=== PATIENT | female | born 1960 | race African-American/Black ===

== ENCOUNTER → 2020-01-23 15:39 | Outpatient (BNVA) | payer MEDICAID, SELFPAY | PROVIDERS: PCP Nurse Practitioner Family; Referring Provider Nurse Practitioner Family; Visit Provider Physician Assistant | DX: E66.01 Morbid (severe) obesity due to excess calories (principal); Z68.41 Body mass index [BMI] 40.0-44.9, adult | CPT/HCPCS: 99213 ==

== ENCOUNTER → 2020-02-05 12:08 | Outpatient (BNVA) | payer MEDICAID, SELFPAY | PROVIDERS: PCP Internal Medicine; Referring Provider Internal Medicine; Visit Provider Dietitian, Registered | DX: Z76.89 Persons encountering health services in other specified circumstances (principal) ==

== ENCOUNTER → 2020-02-06 13:38 | Outpatient (BNVA) | payer MEDICAID, SELFPAY | PROVIDERS: PCP Internal Medicine; Visit Provider Physician Assistant | DX: Z76.89 Persons encountering health services in other specified circumstances (principal) ==

== ENCOUNTER → 2020-02-26 08:31 | Outpatient (BNVA) | payer MEDICAID, SELFPAY | PROVIDERS: PCP Family Medicine; Referring Provider Family Medicine; Visit Provider Physician Assistant | DX: Z76.89 Persons encountering health services in other specified circumstances (principal) ==

== ENCOUNTER → 2020-03-12 14:11 | Outpatient (BNVA) | payer MEDICAID, SELFPAY | PROVIDERS: PCP Family Medicine; Referring Provider Family Medicine; Visit Provider Surgery | DX: Z01.818 Encounter for other preprocedural examination (principal); E66.01 Morbid (severe) obesity due to excess calories; Z68.41 Body mass index [BMI] 40.0-44.9, adult; R06.02 Shortness of breath | CPT/HCPCS: 99212 ==

== ENCOUNTER → 2020-03-18 13:42 | Outpatient (BNVA) | payer MEDICAID, SELFPAY | PROVIDERS: PCP Family Medicine; Referring Provider Nurse Practitioner Family; Visit Provider Dietitian, Registered | DX: Z76.89 Persons encountering health services in other specified circumstances (principal) ==

== ENCOUNTER → 2020-04-06 14:56 | Outpatient (REF) | payer MEDICAID, SELFPAY ==
--- NOTE | 2020-04-06 15:10 | ECG_ITS ---
Test Reason : CP Blood Pressure : / mmHG Vent. Rate : 079 BPM Atrial Rate : 079 BPM P-R Int : 184 ms QRS Dur : 084 ms QT Int : 374 ms P-R-T Axes : 057 043 023 degrees QTc Int : 428 ms Normal sinus rhythm Normal ECG No previous ECGs available Referred By: Halina Lemons Electronically Signed By:Kong Reid
--- NOTE | 2020-04-06 15:26 | XR_ITS ---
EXAMINATION: XR CHEST CLINICAL INFORMATION: Preprocedure examination. Obesity. COMPARISON: None TECHNIQUE: 2 views of the chest were obtained. FINDINGS: The cardiac and mediastinal contours are normal. The lungs are clear. There is no pleural effusion or pneumothorax. There are degenerative changes of the spine and mild scoliosis. There is an old-appearing lower thoracic vertebral body compression fracture, probably the T11 vertebral body. XR/XR chest 2V IMPRESSION: No evidence for acute disease in the chest. Degenerative changes of the thoracic spine, mild scoliosis and old lower thoracic vertebral body compression fracture.
== END ==
LOC: HO.CARD 14:56
PROVIDERS: PCP Nurse Practitioner Family; Visit Provider Physician Assistant
DX: Z01.818 Encounter for other preprocedural examination (principal)
CPT/HCPCS: 71046; 93005

== ENCOUNTER → 2020-04-07 14:53 | Outpatient (BNVA) | payer MEDICAID, SELFPAY | PROVIDERS: PCP Family Medicine; Visit Provider Surgery | DX: E66.01 Morbid (severe) obesity due to excess calories (principal); Z68.41 Body mass index [BMI] 40.0-44.9, adult | CPT/HCPCS: 99212 ==

== ENCOUNTER → 2020-04-09 08:09 | Outpatient (BNVA) | payer MEDICAID, SELFPAY | PROVIDERS: PCP Family Medicine; Visit Provider Dietitian, Registered | DX: Z76.89 Persons encountering health services in other specified circumstances (principal) ==

== ENCOUNTER → 2020-04-17 13:43 | Outpatient (BNVA) | payer MEDICAID, SELFPAY | PROVIDERS: PCP Family Medicine; Visit Provider Surgery | DX: Z01.818 Encounter for other preprocedural examination (principal); E66.01 Morbid (severe) obesity due to excess calories; Z68.41 Body mass index [BMI] 40.0-44.9, adult; R06.02 Shortness of breath | CPT/HCPCS: 99212 ==

== ENCOUNTER 2020-04-18 10:00 | Outpatient (REF) | payer MEDICAID, SELFPAY ==
[2020-04-18 10:56] LABS: MANUAL DIFF FLAG NO
[2020-04-18 11:01] LABS: Basophils Percent Auto 0.4 % (0-2); Eosinophils Absolute Auto 0.2 X10*3/uL (0.0-0.4); Eosinophils Percent Auto 1.8 % (0-4); Hematocrit 37.5 % (37-47); Hemoglobin 11.7 g/dl (12.0-16.0); Imm Gran Abs Auto 0.04 X10*3/uL (0.00-0.03); Imm Gran Pct Auto 0.5 % (0.0-0.4); Lymphocytes Percent Auto 23.8 % (20-40); Mean Corpuscular HGB Conc 31.2 g/dl (31.0-35.0); Mean Corpuscular Hemoglobin 27.9 pg (27.0-33.0); Mean Corpuscular Volume 89.5 fL (80-98); Mean Platelet Volume 9.2 fL (9.4-12.3); Monocytes Absolute Auto 0.7 X10*3/uL (0.1-1.2); Monocytes Percent Auto 8.4 % (2-11); Neutrophils Absolute Auto 5.3 X10*3/uL (2.0-8.3); Neutrophils Percent Auto 65.1 % (45-73); Platelet Count 325 X10*3/uL (160-400); Red Blood Count 4.19 X10*6/uL (4.20-5.50); Red Cell Distribution Width 13.6 % (11.0-16.0); White Blood Count 8.2 X10*3/uL (4.8-10.8)
[2020-04-18 11:18] LABS: Albumin Level 4.1 g/dL (3.5-5.0); Anion Gap 12 (12-20); Blood Urea Nitrogen 14 mg/dL (9-16); Calcium 9.4 mg/dL (8.4-10.2); Carbon Dioxide 27 mmol/L (22-29); Chloride 108 mmol/L (96-108); Estimated Glomerular Filt Rate > 60; Glucose Random 99 mg/dL (60-115); Potassium 3.4 mmol/l (3.3-5.1); Sodium 144 mmol/L (135-145)
[2020-04-18 11:47] LABS: Glucose Urine UA NEG (NEG); Leukocyte Esterase Urine NEG (NEG); Nitrite Urine NEG (NEG); Specific Gravity - Urine 1.025 (1.005-1.025); Urine Blood NEG (NEG); Urine Ketones 15 MG/DL (NEG); Urine Protein NEG (NEG-TRACE)
[2020-04-18 11:49] LABS: Appearance Urine CLEAR; Color Urine YELLOW
== END 2020-04-18 10:01 | disposition home or self-care (01) ==
LOC: HO.LAB 10:00
PROVIDERS: PCP Family Medicine; Visit Provider Surgery
DX: Z01.818 Encounter for other preprocedural examination (principal)
CPT/HCPCS: 36415; 80048; 81003; 82040; 85025

== ENCOUNTER 2020-04-22 07:27 | Inpatient (IN) | payer MEDICAID, SELFPAY ==
[2020-04-17 09:13] VITALS: BMI 43.8
--- NOTE | 2020-04-21 10:57 | P.CONAN_ITS ---
HPI - Anesthesia Eval Consult details Narrative: 59yo F for Gastrectomy Sleeve Cardiac cleared @ low to intermed. Notes poorly controlled BP to be managed by PCP (147/76 at last bariatric appt) [facility] Past Medical History Medical History ADHD Arthritis Asthma Hypertension Lab test negative for COVID-19 virus Family History Family History Father Heart disease Mother Breast cancer Brother No problems noted. Son No problems noted. Daughter No problems noted. Sister No problems noted. Surgical History Surgical History H/O colonoscopy Hx laparoscopic cholecystectomy Status post breast reduction Social History Social History Are you a primary senior care assistant to a significant other at home: No Do you presently have visiting nurse or other home services: No Alcohol intake: current Alcohol intake frequency: holidays/special occasions only Smoking Status: Never smoker Use of substances other than those prescribed or required for medical reasons: Yes Substance Use Type: Marijuana Substance Use Type Other:: using edibles Substance Use Frequency: Occasionally Have you been hit, kicked, punched, or otherwise hurt by someone within the past year? If so, by whom?: No Advance Directives Information Provided: No Recently lost weight without trying: No Meds Allergies Allergy/AdvReac Type Severity Reaction Status Date / Time fish derived [fish] Allergy Severe Anaphylaxis Verified 04/17/20 15:59 amoxicillin [Augmentin] Allergy Intermediate Rash Verified 04/17/20 15:59 clavulanic acid [Augmentin] Allergy Intermediate Rash Verified 04/17/20 15:59 Home Medications Medication Instructions Recorded Confirmed Type dextroamphetamine-amphetamine ER 10 mg PO DAILY 02/26/20 04/17/20 History 10 mg 24hr capsule,extend release fluticasone 500 mcg-salmeterol 50 1 inh INHALATION BID 02/26/20 04/17/20 History mcg/dose blistr powdr for inhalation lisinopril 10 mg tablet 10 mg PO DAILY 02/26/20 04/17/20 History ascorbic acid (vitamin C) 1,000 mg 1 g PO DAILY tab 03/12/20 04/17/20 History tablet blue-green algae (Spirulina) 500 2,000 mg PO DAILY tab 03/12/20 04/17/20 History mg tablet cholecalciferol (vitamin D3) 125 125 mcg PO DAILY 03/12/20 04/17/20 History mcg (5,000 unit) capsule naproxen 500 mg tablet 500 mg PO DAILY tab 03/12/20 04/17/20 History oxycodone-acetaminophen 5 mg-325 1 tab PO Q6H PRN 03/12/20 04/17/20 History mg tablet starch ea MISCELLANEOUS 03/12/20 04/17/20 History albuterol sulfate [ProAir HFA] 2 puff INHALATION Q4-6H PRN 04/17/20 04/17/20 History Exam Exam Date and Time: April 21, 2020 1057 Height,Weight and Vital Signs: Height 5 ft 2 in Weight 108.681 kg Pertinent Lab Results Pertinent Lab Results: Laboratory Tests 04/18/20 10:30 Blood Type A Positive Antibody Screen NEGATIVE Laboratory Tests 04/18/20 04/18/20 10:30 10:30 WBC 8.2 Hgb 11.7 L Hct 37.5 Plt Count 325 Sodium 144 Potassium 3.4 Chloride 108 Carbon Dioxide 27 BUN 14 Creatinine 0.81 Narrative Narrative: EKG 04/2020: Normal sinus rhythm Normal ECG No previous ECGs available 2018 Cardiac Preop W/U Echo with low nml EF 50-55%, mild DD, otherwise unremarkable MIBI no ischemia or infarction, LVEF 45% Assessment and Plan Assessment Anesthesia Assessment: Chart Reviewed
--- NOTE | 2020-04-21 14:16 | MHC.SHP ---
Pre-Procedural Eval Section B Chief Complaint: obesity Allergies: Allergies Allergy/AdvReac Type Severity Reaction Status Date / Time fish derived [fish] Allergy Severe Anaphylaxis Verified 04/17/20 15:59 amoxicillin [Augmentin] Allergy Intermediate Rash Verified 04/17/20 15:59 clavulanic acid [Augmentin] Allergy Intermediate Rash Verified 04/17/20 15:59 Plan I have reviewed the history and physical and performed a pertinent physical examination on my patient. No changes have occurred unless specified.
[2020-04-22] VITALS (31 sets, daily range): BP systolic 140–234; BP diastolic 73–120; PULSE 84–114; RESP 12–20; TEMP 35.9–36.9; O2SAT 94–100
[2020-04-22] MEDS: Lactated Ringers 1,000 ML 100 ML IVCONT ×2 (08:01→20:23)
[2020-04-22] MEDS: Clindamycin Phosphate/D5W 900 MG/50 ML PIGGYBACK 50 MG IV ×2 (08:03→21:07)
[2020-04-22 08:13] LABS: COVID-19 Test Negative (Negative); IDNOW Serial# 9DD0AD1C
--- NOTE | 2020-04-22 09:12 | P.CONAN_ITS ---
[facility] Past Medical History Medical History ADHD Arthritis Asthma Hypertension Lab test negative for COVID-19 virus Family History Family History Father Heart disease Mother Breast cancer Brother No problems noted. Son No problems noted. Daughter No problems noted. Sister No problems noted. Surgical History Surgical History H/O colonoscopy Hx laparoscopic cholecystectomy Status post breast reduction Social History Social History Are you a primary resident care provider to a significant other at home: No Do you presently have visiting nurse or other home services: No Alcohol intake: current Alcohol intake frequency: holidays/special occasions only Smoking Status: Never smoker Use of substances other than those prescribed or required for medical reasons: Yes Substance Use Type: Marijuana Substance Use Type Other:: using edibles Substance Use Frequency: Occasionally Have you been hit, kicked, punched, or otherwise hurt by someone within the past year? If so, by whom?: No Advance Directives Information Provided: No Recently lost weight without trying: No Meds Allergies Allergy/AdvReac Type Severity Reaction Status Date / Time fish derived [fish] Allergy Severe Anaphylaxis Verified 04/17/20 15:59 amoxicillin [Augmentin] Allergy Intermediate Rash Verified 04/17/20 15:59 clavulanic acid [Augmentin] Allergy Intermediate Rash Verified 04/17/20 15:59 Home Medications Medication Instructions Recorded Confirmed Type dextroamphetamine-amphetamine ER 10 mg PO DAILY 02/26/20 04/17/20 History 10 mg 24hr capsule,extend release fluticasone 500 mcg-salmeterol 50 1 inh INHALATION BID 02/26/20 04/17/20 History mcg/dose blistr powdr for inhalation lisinopril 10 mg tablet 10 mg PO DAILY 02/26/20 04/17/20 History ascorbic acid (vitamin C) 1,000 mg 1 g PO DAILY tab 03/12/20 04/17/20 History tablet blue-green algae (Spirulina) 500 2,000 mg PO DAILY tab 03/12/20 04/17/20 History mg tablet cholecalciferol (vitamin D3) 125 125 mcg PO DAILY 03/12/20 04/17/20 History mcg (5,000 unit) capsule naproxen 500 mg tablet 500 mg PO DAILY tab 03/12/20 04/17/20 History oxycodone-acetaminophen 5 mg-325 1 tab PO Q6H PRN 03/12/20 04/17/20 History mg tablet starch ea MISCELLANEOUS 03/12/20 04/17/20 History albuterol sulfate [ProAir HFA] 2 puff INHALATION Q4-6H PRN 04/17/20 04/17/20 History Exam Exam Date and Time: April 22, 2020 0912 Height,Weight and Vital Signs: Height 5 ft 2 in Weight 108.681 kg Last Vital Signs Temp 97.7 F 04/22/20 07:47 Pulse 92 04/22/20 07:47 Resp 16 04/22/20 07:47 BP 140/73 H 04/22/20 07:47 Pulse Ox 98 04/22/20 07:47 Pertinent Lab Results Pertinent Lab Results: Laboratory Tests 04/18/20 04/22/20 04/22/20 10:30 07:30 07:58 COVID-19 (SHENA) Negative COVID-19 Clin Com See Note Blood Type A Positive A Positive Antibody Screen NEGATIVE NEGATIVE Airway Mallampati Class: I TM Dist: >3cm Neck ROM: Full Heart: h RRR Lungs: CTA
--- NOTE | 2020-04-22 09:14 | P.CONAN_ITS ---
[facility] Past Medical History Medical History ADHD Arthritis Asthma Hypertension Lab test negative for COVID-19 virus Family History Family History Father Heart disease Mother Breast cancer Brother No problems noted. Son No problems noted. Daughter No problems noted. Sister No problems noted. Surgical History Surgical History H/O colonoscopy Hx laparoscopic cholecystectomy Status post breast reduction Social History Social History Are you a primary respiratory care faculty to a significant other at home: No Do you presently have visiting nurse or other home services: No Alcohol intake: current Alcohol intake frequency: holidays/special occasions only Smoking Status: Never smoker Use of substances other than those prescribed or required for medical reasons: Yes Substance Use Type: Marijuana Substance Use Type Other:: using edibles Substance Use Frequency: Occasionally Have you been hit, kicked, punched, or otherwise hurt by someone within the past year? If so, by whom?: No Advance Directives Information Provided: No Recently lost weight without trying: No Meds Allergies Allergy/AdvReac Type Severity Reaction Status Date / Time fish derived [fish] Allergy Severe Anaphylaxis Verified 04/17/20 15:59 amoxicillin [Augmentin] Allergy Intermediate Rash Verified 04/17/20 15:59 clavulanic acid [Augmentin] Allergy Intermediate Rash Verified 04/17/20 15:59 Home Medications Medication Instructions Recorded Confirmed Type dextroamphetamine-amphetamine ER 10 mg PO DAILY 02/26/20 04/17/20 History 10 mg 24hr capsule,extend release fluticasone 500 mcg-salmeterol 50 1 inh INHALATION BID 02/26/20 04/17/20 History mcg/dose blistr powdr for inhalation lisinopril 10 mg tablet 10 mg PO DAILY 02/26/20 04/17/20 History ascorbic acid (vitamin C) 1,000 mg 1 g PO DAILY tab 03/12/20 04/17/20 History tablet blue-green algae (Spirulina) 500 2,000 mg PO DAILY tab 03/12/20 04/17/20 History mg tablet cholecalciferol (vitamin D3) 125 125 mcg PO DAILY 03/12/20 04/17/20 History mcg (5,000 unit) capsule naproxen 500 mg tablet 500 mg PO DAILY tab 03/12/20 04/17/20 History oxycodone-acetaminophen 5 mg-325 1 tab PO Q6H PRN 03/12/20 04/17/20 History mg tablet starch ea MISCELLANEOUS 03/12/20 04/17/20 History albuterol sulfate [ProAir HFA] 2 puff INHALATION Q4-6H PRN 04/17/20 04/17/20 History Exam Exam Date and Time: April 22, 2020 0914 Height,Weight and Vital Signs: Height 5 ft 2 in Weight 108.681 kg Last Vital Signs Temp 97.7 F 04/22/20 07:47 Pulse 92 04/22/20 07:47 Resp 16 04/22/20 07:47 BP 140/73 H 04/22/20 07:47 Pulse Ox 98 04/22/20 07:47 Pertinent Lab Results Pertinent Lab Results: Laboratory Tests 04/18/20 04/22/20 04/22/20 10:30 07:30 07:58 COVID-19 (SHENA) Negative COVID-19 Clin Com See Note Blood Type A Positive A Positive Antibody Screen NEGATIVE NEGATIVE Assessment and Plan Final Anesthetic Review NPO: Yes ASA Class: III Final Preanesthetic Review: No Changes in Pt Med Stat, Meds/Allgs Chart Reviewed, Consent Obtained/Reviewed and Anes Risks/Benef Reviewed Patient Risk: High Procedure Risk: Intermediate Anesthetic Plan Anesthetic Plan: GA Disposition: Standard PACU
--- NOTE | 2020-04-22 11:11 | P.BOP_ITS ---
Brief Operative Note Date of Service: 04/22/20 Pre-op diagnosis: Morbid obesity and hypertension Post-op diagnosis: other (Same and paraesophageal hernia) Procedure: Laparoscopic sleeve gastrectomy, paraesophageal hernia repair, intraoperative endoscopy, and Iker block Implants: covidien nadeem Surgeon: Estee Block MD Anesthesia: GETA Product Transfer Pumper: Ximena Singh Estimated blood loss (mL): 10 Pathology: other (Partial gastrectomy) Condition: stable Disposition: PACU
--- NOTE | 2020-04-22 11:12 | P.OP_ITS ---
Operative Note Operative Note Date of Service: 04/22/20 Narrative: Patient was brought into the operating room and placed on the operating room table in the supine position. General anesthesia was induced. Normal DVT prophylaxis was instituted and the patient received 900 mg of clindamycin preoperatively. The abdomen was then prepped and draped in the normal sterile fashion. A safety time-out was performed. A mixture of 1% lidocaine with epinephrine and ??% Marcaine plain was used to anesthetize the planned incision site in the left upper quadrant. A #11 scalpel was used to make a 5 mm left upper quadrant transverse incision through which a veress needle was placed. Three pops were heard going through the fascia. A saline drop test was used to confirm that the veress needle was intraabdominal. An optiview technique was then used to place a 5mm port in the left upper quadrant. A 5 mm 30 degree laproscope was then placed through this port and the abdominal cavity was surveyed and was normal. The patient was placed in reverse Trendelenburg positioning. A clive liver retractor was then placed in the subxyphoid position and it was used to hold up the left lobe of the liver to the abdominal wall. This was secured to the bed using the liver retractor bashir. A SANTOSH block was then performed for pain control on the right side of the abdomen. A 5 mm port was placed in the right upper quadrant near the falciform ligament. A 12 mm port was then placed in the mid epigastrium. One additional 5 mm port was placed in the left upper quadrant just to the left of the placement of the first port. I then performed a SANTOSH block on the left side of the abdomen. I then removed the epigastric fat pad; there was a moderate size anterior hiatal hernia noted, about 3-4 cm in size. We cleared off the phrenoesophageal ligament bilaterally. I reapproximated the left and right crura anteriorly with a total of 3 stitches of 2-0 ethibond and a laparoscopic knot pusher. There was no residual hiatal hernia. I then opened up the angle of His. We then gained entry into the lesser sac about 4-5 cm from the pylorus. I had anesthesia place a 34 Serbian orogastric tube into the distal antrum to use as a sizing tool for gastric pouch size. I divided the short gastric vessels up to the angle of His. We then started the creation of the gastric pouch by firing a 60 mm purple load endostapler up the stomach about 4-5 cm from the pylorus. We completed the creation of the gastric pouch using a total of 4 firings of a 60 mm purple load stapler. We had anesthesia remove the orogastric tube, then we clamped across the distal antrum using a fired 60 mm endostapler. We flattened the patient and then instilled normal saline surrounding the newly created staple line. I then performed an on-table endoscopy. I passed the gastroscopy into the posterior oropharynx and down the esophagus evaluating the esophageal mucosa which was normal. There was no evidence of hiatal hernia. I passed the gastroscope into the gastric pouch and insufflated the gastric pouch. There was healthy pink mucosa and no evidence of active bleeding. There was no evidence of leak on laparoscopy. I desufflated the gastric pouch and removed the endoscope. I removed the endostapler from the abdomen and suctioned the fluid from the left upper quadrant. I then removed the partial gastrectomy specimen through the epigastric 12 mm port site. I reapproximated the 12 mm port using a 0 maxon suture with a laparoscopic suture passer. I instilled local anesthetic into the fascial closure site and tied the suture down at a pressure of 8-10 mm of Hg. There was no residual fascial defect. We removed the liver retractor and the left upper quadrant 5 mm ports under direct visualization. There was no evidence of any active bleeding. I desufflated the abdomen through the last remaining port and removed the laparoscope and 5 mm port. We reapproximated all incisions with a 4-0 monocryl subcuticular stitch. We cleaned and dried the abdominal skin and applied dermabond skin glue. All count were correct at the end of the case. The patient was awake and in stable condition prior to extubation and transfer to the recovery room.
--- NOTE | 2020-04-22 11:30 | P.DS_ITS ---
DS: Providers Provider Date of Service: 04/23/20 Date of admission: 04/22/20 07:27 Primary care physician: ARI Silvestre DS: Diagnosis Discharge Diagnosis (1) Paraesophageal hernia: Status: Acute (2) Morbid obesity: Status: Acute (3) Hypertension: Status: Acute (4) S/P laparoscopic sleeve gastrectomy: Status: Acute (5) S/P repair of paraesophageal hernia: Status: Acute DS: Medications Discharge Medications Home Medications: Home Medications Medication Instructions Recorded Confirmed dextroamphetamine-amphetamine ER 10 mg PO DAILY 02/26/20 04/17/20 10 mg 24hr capsule,extend release fluticasone 500 mcg-salmeterol 50 1 inh INHALATION BID 02/26/20 04/17/20 mcg/dose blistr powdr for inhalation lisinopril 10 mg tablet 10 mg PO DAILY 02/26/20 04/17/20 ascorbic acid (vitamin C) 1,000 mg 1 g PO DAILY tab 03/12/20 04/17/20 tablet blue-green algae (Spirulina) 500 2,000 mg PO DAILY tab 03/12/20 04/17/20 mg tablet cholecalciferol (vitamin D3) 125 125 mcg PO DAILY 03/12/20 04/17/20 mcg (5,000 unit) capsule naproxen 500 mg tablet 500 mg PO DAILY tab 03/12/20 04/17/20 oxycodone-acetaminophen 5 mg-325 1 tab PO Q6H PRN 03/12/20 04/17/20 mg tablet starch ea MISCELLANEOUS 03/12/20 04/17/20 albuterol sulfate [ProAir HFA] 2 puff INHALATION Q4-6H PRN 04/17/20 04/17/20 Previous Rx's Medication Instructions Recorded acetaminophen 500 mg tablet 1,000 mg PO Q6H PRN #30 tab 04/17/20 docusate sodium 100 mg capsule 100 mg PO BID #30 cap 04/17/20 famotidine 20 mg tablet 20 mg PO DAILY #30 tab 04/17/20 ondansetron HCl 4 mg tablet 4 mg PO Q6H PRN #30 tab 04/17/20 simethicone 80 mg chewable tablet 80 mg PO TID-QID PRN #30 tab 04/17/20 DS: Summary Time Spent with Patient Time attestation: Total time spent providing and/or coordinating discharge services: Discharge coordination time: Greater than 30 minutes Physical Exam Vital Signs: Vital Signs: Last Vital Signs Temp 97.3 F 04/22/20 11:05 Pulse 114 H 04/22/20 11:05 Resp 14 04/22/20 11:05 BP 228/105 H 04/22/20 11:05 Pulse Ox 95 04/22/20 11:05 Body Mass Index 43.8 DS: Data Data Completed and Pending Pending studies at discharge: Pending at discharge 04/22/20 10:03 Surgical [PTH] Routine Labs on day of discharge: Laboratory Tests 04/18/20 04/22/20 04/22/20 10:30 07:30 07:58 COVID-19 (SHENA) Negative COVID-19 Clin Com See Note Blood Type A Positive A Positive Antibody Screen NEGATIVE NEGATIVE Discharge Plan Discharge Patient Disposition: Home, Self-Care Referrals: Gisela Bose FNP [Primary Care Provider] - Discharge Medications: New hydralazine 10 mg tablet 10 mg PO BID 28 Days Qty: 56 RF: 1 Continued albuterol sulfate [ProAir HFA] 90 mcg/actuation Hfa Aerosol Inhaler 2 puff INHALATION Q4-6H PRN (Reason: Shortness Of Breath) RF: 0 oxycodone-acetaminophen [Percocet] 5-325 mg tablet 1 tab PO Q6H PRNRF: 0 lisinopril 10 mg tablet 10 mg PO DAILY RF: 0 fluticasone propion-salmeterol [Advair Diskus] 500-50 mcg/dose blister with d evice 1 inh inhalation BID RF: 0 dextroamphetamine-amphetamine 10 mg capsule,extended release 24hr 10 mg PO DAILY RF: 0 acetaminophen [Tylenol Extra Strength] 500 mg tablet 1,000 mg PO Q6H PRN (Reason: pain) Qty: 30 RF: 1 famotidine [Pepcid AC] 20 mg tablet 20 mg PO DAILY Qty: 30 RF: 1 simethicone [Gas Relief (simethicone)] 80 mg tablet,chewable 80 mg PO TID-QID PRN (Reason: abdominal distention) Qty: 30 RF: 1 ondansetron HCl [Zofran] 4 mg tablet 4 mg PO Q6H PRN (Reason: nausea and vomiting) Qty: 30 RF: 1 docusate sodium [Colace] 100 mg capsule 100 mg PO BID Qty: 30 RF: 1 Discontinued naproxen 500 mg tablet 500 mg PO DAILY RF: 0 blue-green algae (Spirulina) 500 mg tablet 2,000 mg PO DAILY RF: 0 cholecalciferol (vitamin D3) 125 mcg (5,000 unit) capsule 125 mcg PO DAILY RF: 0 ascorbic acid (vitamin C) 1,000 mg tablet 1 g PO DAILY RF: 0 starch Powder miscellaneous RF: 0 Discharge Orders: Discharge Order (Routine); Ordered 04/23/20 Ordered By: Ximena Singh Diet: other Activity on Discharge: No heavy lifting Stand Alone Forms: Patient Portal Discharge page Activity Restrictions/Additional Instructions: Discharge Instructions *follow up with PCP regarding elevated blood pressure. 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 1. Please call your doctor or come back to the emergency room should any new symptoms arise. 2. You will receive a courtesy call from [facility] 24-48 hours after discharge. 3. Activity: abstain from alcohol, practice limited stair climbing, no bending, no driving, no exercise, no illicit substances, no lifting, no sex, no tub bath, no work. 4. Diet: continue stage 3 protein shakes until your [address] Block. 5. Dressing Change/Wound Care: Your incision is covered by surgical glue. If the area is tender, you may apply an ice pack for short intervals (no more than 20 minutes on, followed by at least 20 minutes off). Do not apply heat. Do not use creams, lotions, or topical antibiotics unless instructed to do so by your surgeon. These can cause infection or allergic reaction. 6. Call your doctor if: - Your temperature exceeds 101.5 F - You experience excessive pain or swelling - You have an unexpected reaction to medication - You have excessive bleeding - You experience continued vomiting/nausea - Your incision begins to separate - Your incision shows signs of infection such as increased redness, swelling, excessive pain, heat, or drainage (light blood or clear fluid is normal) 7. General instructions: - No lifting greater than 5 lbs for the next 4 weeks. - No driving within 24 hours of taking narcotic pain medications. - If you do not move your bowels in the next 2 days, please take milk of magnesia over the counter. Please follow the post op diet and do not advance your diet until you are seen in the office in about 2 weeks. - Please walk around your home every hour or two to prevent blood clots from forming in your legs. You do not need to wake from sleeping to walk. - Please sleep in a bed or couch to prevent kinking at the hips and knees. - Please take your incentive spirometer (your lung rolling mill operator) home with you and use it for the next few days to prevent pneumonias. - You may shower, no hot tubs, baths or swimming pools. - Please call the office with any questions or concerns such as increasing abdominal pain, fever, chills, shortness of breath, chest pain, leg pain or swelling, or redness or drainage from your incisions. - Please stay on stage 3 diet which includes sugar free clear liquids such as ice pops and jello and broth and crystal light. Avoid all carbonation. Please drink 3 protein shakes with at least 25-30 grams of protein daily or 3 of the Celebrate 4:1 shakes which can be purchased in our office. The Celebrate shakes have all of the bariatric vitamins you need if you consume these shakes. If you are drinking other protein shakes, you will need to purchase the Celebrate multivitamins and calcium that we provide in the office (they will provide all the vitamins you need). Please make sure you are consuming at least 40-60 ounces of water in addition to your 3 protein shakes daily. 8. Do not hesitate to contact the office with any questions at . Discharge Summary Date of Service: 04/23/20 Admitting Diagnosis: morbid obesity Discharge Diagnosis: same, and paraesophageal hernia Procedure Performed: LSG, paraesophageal repair, jayleen block, intraoperative endoscopy Discharge Medications: 1. Simethicone 80mg tablet chewable (Si tablet every 6 hours orally for 7 days, #28, 1 RF) q4h prn gas 2. Acetaminophen 500 mg tablet (Si tablets as needed every 6 hours orally for 30 days, #240, 0 RF) 3. Ondansetron 4 mg tablet disintegrating (Si tablet every 6 hours orally for 7 days, #28, 1 RF) 4. Colace 100 mg capsule (Si capsule twice a day for 30 days, #60, 2 RF) 5. Pepcid 20 mg chewable tablet (Si tablet twice a day for 30 days, #60, 3 RF) Discharge Instructions: The patient should continue on the stage III bariatric diet, which includes 3 protein shakes of at least 20-30g of protein on a daily basis. The patient was encouraged to avoid drinking liquids with her protein shakes. They should wait 30-45 minutes in between her meals and drinking water. She should drink at least 40-60 ounces of water on a daily basis. They should ambulate while at home to avoid any blood clots in her lower extremities. They should call with any questions or concerns such as increase in abdominal pain, persistent nausea, vomiting, redness and drainage from her incisions, fever, chills, shortness of breast, or chest pain beyond what is normal for her. The patient should avoid all heavy lifting greater than 5 pounds for the next 4 weeks. The patient is already scheduled to follow up with me in 2 weeks time, but should call the office with any questions prior to that follow up appointment. The patient should not advance their diet until they are seen in the office for the 2 week appointment. Hospital Course: The patient was admitted after undergoing SURGERY. They were started on stage II (1 oz of fluid every 15 minutes) on POD #0. The next morning they were evaluated and started on stage III diet (protein shakes). All labs were within normal limits. On post-operative day #1 she was feeling better, nausea and epigastric pain improved and they were tolerating stage III bariatric diet well. The patient was discharged home. Discharge Disposition: Home. Visit Report Forms: Patient Portal Discharge page Care Plan Goals: weight loss Health Concerns: obesity Plan of Treatment: lap sleeve gastrectomy
--- NOTE | 2020-04-22 11:30 | PM.PNGS ---
Subjective Subjective Date of Service: 04/23/20 Interval history: POD #1: Patient is doing well. Has been ambulating, using the incentive spirometer, and tolerating po liquids. No nausea or abdominal pain. Has some mild incisional pain. BP was elevated overnight, given hydralazine and changed to IV enalaprilat. Patient feels well, no anxiety or pain. Physical Exam Vital Signs: Vital Signs: Last Vital Signs Temp 97.3 F 04/22/20 11:05 Pulse 114 H 04/22/20 11:05 Resp 14 04/22/20 11:05 BP 228/105 H 04/22/20 11:05 Pulse Ox 95 04/22/20 11:05 Body Mass Index 43.8 Const: General: cooperative, comfortable, no acute distress, alert and awake Nutritional Appearance: obese GI: Inspection: Yes normal to inspection, Yes incision (normal, slight erythema at site of surgical glue, no tenderness/warmth/drai) and Yes obesity Extrem: Right lower extremity: lower leg Details: no tenderness; no edema Left lower extremity: lower leg Details: no tenderness; no edema Progress Note: A&P Assessment and plan (1) Morbid obesity: Status: Acute (2) Paraesophageal hernia: Status: Acute Assessment and Plan: POD #1: Patient doing well and will be discharged home today. All instructions given in writing. Follow up as scheduled in 2 weeks. Gave new Rx for hydralazine po 10mg BID. Given lisinopril po dose this morning before discharge. Patient to call PCP to discuss elevated BP. Fall Risk Details Current Medications: Current Medications Generic Name Dose Route Start Last Admin Trade Name Freq PRN Reason Stop Dose Admin Albuterol Sulfate 2.5 mg 04/22/20 07:24 Albuterol Sulfate (0.083%) 2.5 Mg/3 Ml Vial.Neb INHALE ONCE PRN Shortness of Breath/Wheezing Fentanyl 50 mcg 04/22/20 10:09 Fentanyl Citrate/Pf 100 Mcg/2 Ml Vial IVPUSH Q5M PRN Pain, Severe (Pain Scale 7-10) Hydromorphone HCl 0.5 mg 04/22/20 10:09 Hydromorphone Hcl 0.5 Mg/0.5 Ml Syringe IVPUSH Q5M PRN Pain, Severe (Pain Scale 7-10) Lactated Ringer's 1,000 mls @ 100 mls/hr 04/22/20 07:30 04/22/20 08:01 Lr IVCONT 100 mls/hr .Q10H MARLENA Administration Ondansetron HCl 4 mg 04/22/20 10:09 Ondansetron Hcl 4 Mg/2 Ml Vial IVPUSH ONCE PRN Nausea and Vomiting Time Spent With Patient Time: Total time spent is greater than 50% in coordination of care (as documented) at patient's floor/unit and/or counseling patient: Time with patient: 15 - 24 minutes
[2020-04-22] MEDS: ondansetron HCL 4 MG/2 ML VIAL IVPUSH ×2 (12:26→19:14)
[2020-04-22] MEDS: Metoclopramide HCl 10 MG/2 ML VIAL IVPUSH ×2 (12:29→21:04)
[2020-04-22] MEDS: hydrALAZINE HCl 20 MG/ML VIAL 10 MG IVPUSH ×2 (17:03→22:53)
--- NOTE | 2020-04-22 18:25 | PC.NURSE ---
PT ARRIVED TO UNIT AT 1635 PT ALERT OX3 , PT OOB AMBULATING TO BR , BLOOD PRESSURE AT THAT TIME 192/88. LEIDY SIDDIQI AWARE NEW ORDER FOR 10MG IV HYDRALAZINE . HYDRALAZINE GIVEN AT 1703 BP 213/102 AT TIME OF MED ADMININSTRATION . 1729 BP 192/86 , BP AT 1750 178/73 JADE SIDDIQI AWARE PT APPEARS COMFORTABLE NO ISSUES . .
[2020-04-22] MEDS: Fluticasone Propionate 100 MCG BLST.W.DEV 2 PUFF INHALE (19:38)
[2020-04-22] MEDS: hydrALAZINE HCl 20 MG/ML VIAL 5 MG IVPUSH (20:21)
[2020-04-22] MEDS: Famotidine 20 MG TABLET PO (21:07)
[2020-04-22] MEDS: Enalaprilat Dihydrate 1.25 MG/ML VIAL 0.625 MG IVPUSH (21:21)
[2020-04-23] VITALS (13 sets, daily range): BP systolic 138–208; BP diastolic 70–98; PULSE 91–112; RESP 16–18; TEMP 36.9–37.5; O2SAT 96–98
[2020-04-23] MEDS: ondansetron HCL 4 MG/2 ML VIAL IVPUSH ×2 (03:15→11:04)
[2020-04-23] MEDS: Enalaprilat Dihydrate 1.25 MG/ML VIAL 0.625 MG IVPUSH ×2 (03:15→08:29)
[2020-04-23 04:39] LABS: MANUAL DIFF FLAG NO
[2020-04-23 04:41] LABS: Basophils Percent Auto 0.2 % (0-2); Hematocrit 37.9 % (37-47); Hemoglobin 12.3 g/dl (12.0-16.0); Imm Gran Abs Auto 0.06 X10*3/uL (0.00-0.03); Imm Gran Pct Auto 0.5 % (0.0-0.4); Lymphocytes Absolute Auto 1.1 X10*3/uL (1.2-4.9); Lymphocytes Percent Auto 8.7 % (20-40); Mean Corpuscular HGB Conc 32.5 g/dl (31.0-35.0); Mean Corpuscular Hemoglobin 28.5 pg (27.0-33.0); Mean Corpuscular Volume 87.9 fL (80-98); Mean Platelet Volume 9.6 fL (9.4-12.3); Monocytes Absolute Auto 1.1 X10*3/uL (0.1-1.2); Monocytes Percent Auto 8.7 % (2-11); Neutrophils Absolute Auto 10.1 X10*3/uL (2.0-8.3); Neutrophils Percent Auto 81.9 % (45-73); Platelet Count 332 X10*3/uL (160-400); Red Blood Count 4.31 X10*6/uL (4.20-5.50); Red Cell Distribution Width 13.5 % (11.0-16.0); White Blood Count 12.4 X10*3/uL (4.8-10.8)
[2020-04-23 05:04] LABS: Anion Gap 18 (12-20); Blood Urea Nitrogen 8 mg/dL (9-16); Calcium 9.5 mg/dL (8.4-10.2); Carbon Dioxide 22 mmol/L (22-29); Chloride 99 mmol/L (96-108); Creatinine Clr Calc Pharmacy 92.4; Estimated Glomerular Filt Rate > 60; Glucose Random 107 mg/dL (60-115); Potassium 3.3 mmol/l (3.3-5.1); Sodium 136 mmol/L (135-145)
[2020-04-23] MEDS: hydrALAZINE HCl 20 MG/ML VIAL 10 MG IVPUSH (05:06)
[2020-04-23] MEDS: Lactated Ringers 1,000 ML 100 ML IVCONT (06:11)
[2020-04-23] MEDS: Fluticasone Propionate 100 MCG BLST.W.DEV 2 PUFF INHALE (07:25)
[2020-04-23] MEDS: Famotidine 20 MG TABLET PO (08:30)
--- NOTE | 2020-04-23 09:47 | MHC.CM.PN ---
PT REPORTS SHE LIVES AT HOME WITH HER MOTHER AND 21 YO DAUGHTER. PT REPORTS SHE IS FULLY INDEPENDENT, HAS NO SERVICES AND NO DME. PT REPORTS SHE HAS A HCP COMPLETED NAMING HER MOTHER HER AGENT. PT CONFIRMS HER PCP IS RITESH LENZ. PT WILL DISCHARGE HOME TODAY WITH NO SERVICES, SHE REPORTS HAVING NO CONCERNS AROUND DC AND SHE WILL ARRANGE HER OWN TRANSPORTATION
--- NOTE | 2020-04-23 10:54 | P.HPHOSP_ITS ---
History of Present Illness Date of Service: 04/23/20 Chief Complaint: elevated blood pressure This is a 59-year-old female with history of hypertension who presented for sleeve gastrectomy on 04/22. Postoperatively she was noted to have uncontrolled hypertension and received several doses of IV medication. Blood pressure was as high as 234/120 on 04/22. For this reason the hospitalists were asked to see her in consultation. She reports taking lisinopril 10 mg daily at home for the past several years. She denies any current chest pain, shortness of breath, headache, vision changes. She recently ambulated to the bathroom on her own without difficulty. She does report ongoing abdominal pain which is currently described as 9/10 in severity. Review of Systems Review of Systems: Yes all other systems are reviewed and are negative Constitutional: Constitutional: Denies chills, Denies fever(s) and Denies headache(s) ENT: Denies headache(s) Cardiovascular: Cardiovascular: Denies chest pain and Denies dyspnea Respiratory: Respiratory: Denies cough and Denies dyspnea Gastrointestinal: Gastrointestinal: Denies abdominal pain Musculoskeletal: Musculoskeletal: Denies abnormal gait Neurologic: Denies abnormal gait, Denies headache(s) and Denies Other visual disturbances [facility] Medical History ADHD Arthritis Asthma Hypertension Lab test negative for COVID-19 virus Family History Father Heart disease Mother Breast cancer Brother No problems noted. Son No problems noted. Daughter No problems noted. Sister No problems noted. Surgical History H/O colonoscopy Hx laparoscopic cholecystectomy Status post breast reduction Social History Are you a primary rn intensive care unit to a significant other at home: No Do you presently have visiting nurse or other home services: No Alcohol intake: current Alcohol intake frequency: holidays/special occasions only Smoking Status: Never smoker Use of substances other than those prescribed or required for medical reasons: Yes Substance Use Type: Marijuana Substance Use Type Other:: using edibles Substance Use Frequency: Occasionally Currently Displaying Signs/Symptoms of Drug Intoxication Withdrawal: No Have you been hit, kicked, punched, or otherwise hurt by someone within the past year? If so, by whom?: No Advance Directives Information Provided: No Do you have thoughts of harming others: None Do you have a plan to hurt others: No Plan Recently lost weight without trying: No service: No Current occupational status: unemployed Meds Allergies Allergy/AdvReac Type Severity Reaction Status Date / Time fish derived [fish] Allergy Severe Anaphylaxis Verified 04/17/20 15:59 amoxicillin [Augmentin] Allergy Intermediate Rash Verified 04/17/20 15:59 clavulanic acid [Augmentin] Allergy Intermediate Rash Verified 04/17/20 15:59 Home Medications Medication Instructions Recorded Confirmed Type dextroamphetamine-amphetamine ER 10 mg PO DAILY 02/26/20 04/17/20 History 10 mg 24hr capsule,extend release fluticasone 500 mcg-salmeterol 50 1 inh INHALATION BID 02/26/20 04/17/20 History mcg/dose blistr powdr for inhalation lisinopril 10 mg tablet 10 mg PO DAILY 02/26/20 04/17/20 History oxycodone-acetaminophen 5 mg-325 1 tab PO Q6H PRN 03/12/20 04/17/20 History mg tablet albuterol sulfate [ProAir HFA] 2 puff INHALATION Q4-6H PRN 04/17/20 04/17/20 History Physical Exam Vital Signs and Narrative: Vital Signs: Last Vital Signs Temp 99.1 F 04/23/20 07:13 Pulse 106 H 04/23/20 07:26 Resp 18 04/23/20 07:13 BP 198/88 H 04/23/20 10:27 Pulse Ox 98 04/23/20 07:13 Body Mass Index 43.8 Const: General: alert and awake Nutritional Appearance: obese Orientation/consciousness: patient oriented x3 HENMT: Head: Yes normocephalic and Yes atraumatic Eyes: Sclerae: sclerae normal Chest: Chest palpation & inspection: normal inspection of the chest Resp: Effort & Inspection: normal respiratory effort and no respiratory distress Auscultation: clear to auscultation bilaterally Cardio: Rate: regular rate Rhythm: regular rhythm GI: Palpation (GI): Soft to palpation and nontender Skin: General skin exam: no rashes or lesions noted Neuro: General: patient oriented x3 Cranial nerves: Yes CN's II-XII intact bilaterally and Yes Bilaterally intact EOM present Extrem: General: Yes normal to inspection Results Labs CBC and Chem 7: 04/23/20 04:19 04/23/20 04:19 Labs: Laboratory Results - last 24 hr 04/23/20 04/23/20 04:19 04:19 MCV 87.9 MCH 28.5 MCHC 32.5 RDW 13.5 Plt Count 332 MPV 9.6 Immature Gran % (Auto) 0.5 H Neut % (Auto) 81.9 H Lymph % (Auto) 8.7 L Pettis % (Auto) 8.7 Eos % (Auto) 0.0 Baso % (Auto) 0.2 Lymph # (Auto) 1.1 L Pettis # (Auto) 1.1 Eos # (Auto) 0.0 Baso # (Auto) 0.0 Abs Immat Gran (auto) 0.06 H Absolute Neuts (auto) 10.1 H Absolute Nucleated RBC 0.000 Nucleated RBC % (auto) 0.0 Anion Gap 18 Estim Creat Clear Calc 92.4 Estimated GFR > 60 Random Glucose 107 Calcium 9.5 Assessment and Plan (1) Hypertension: Status: Acute This is a 59-year-old female with history of asthma, hypertension, POD 1 s/p laparoscopic sleeve gastrectomy with uncontrolled hypertension Hypertension, uncontrolled Asymptomatic Pain likely contributing factor -increase lisinopril dose from 10mg to 20mg daily -start Norvasc 5 mg -adequate pain control -monitor blood pressure closely Thank you for allowing us to participate in the care of this patient. We will follow along with you. This case was discussed with Dr. Rodriguez
[2020-04-23] MEDS: amLODIPine Besylate 5 MG TABLET PO (11:04)
--- NOTE | 2020-04-23 12:39 | P.PNGS_ITS ---
Subjective Subjective Date of Service: 04/23/20 Interval history: Pt was set to be discharged, but her BP continued to be elevated SBP 190s. Medicine was consulted. Physical Exam Vital Signs: Vital Signs: Last Vital Signs Temp 98.4 F 04/23/20 11:11 Pulse 106 H 04/23/20 07:26 Resp 18 04/23/20 11:11 BP 192/88 H 04/23/20 12:01 Pulse Ox 96 04/23/20 11:11 Body Mass Index 43.8 Progress Note: A&P Assessment and plan (1) S/P repair of paraesophageal hernia: Status: Acute (2) S/P laparoscopic sleeve gastrectomy: Status: Acute (3) Morbid obesity: Status: Acute (4) Hypertension: Status: Acute Assessment and Plan: Hospitalist consulted. Patient can't be discharged until SBP < 180. It got under 180 this afternoon. I sent a Rx to [facility] for a home digital BP cuff. I spoke with her PCP's office. Has TV scheduled tomorrow with THERAPY TECH at PCP's office. Discussed with hospitalists. I sent Rx for lisinopril 20mg qd and amlodipine 5mg qd. I saw patient again and explained plan to her. Fall Risk Details Current Medications: Current Medications Generic Name Dose Route Start Last Admin Trade Name Freq PRN Reason Stop Dose Admin Albuterol Sulfate 2 puff 04/22/20 15:28 Albuterol Sulfate 90 Mcg 8 Gm Inhaler INHALE Q4H PRN Shortness Of Breath Amlodipine Besylate 5 mg 04/23/20 10:45 04/23/20 11:04 Amlodipine Besylate 5 Mg Tablet PO 5 mg DAILY MARLENA Administration Protocol Famotidine 20 mg 04/22/20 21:00 04/23/20 08:30 Famotidine 20 Mg Tablet PO 20 mg BID MARLENA Administration Fluticasone Propionate 2 puff 04/22/20 20:00 04/23/20 07:25 Fluticasone Propionate 100 Mcg Blst.W.Dev INHALE 2 puff RBID MARLENA Administration Hydromorphone HCl 0.25 mg 04/22/20 15:28 Hydromorphone Hcl 0.5 Mg/0.5 Ml Syringe IVPUSH Q4H PRN Pain, Severe (Pain Scale 7-10) Acetaminophen 1,000 mg in 100 mls @ 16.7 mls/hr 04/22/20 16:00 04/23/20 11:51 Ofirmev IV Not Given .Q6H MARLENA Lisinopril 20 mg 04/24/20 09:00 Lisinopril 20 Mg Tablet PO DAILY [facility] Protocol Metoclopramide HCl 10 mg 04/22/20 12:28 04/22/20 21:04 Metoclopramide Hcl 10 Mg/2 Ml Vial IVPUSH 10 mg Q6H PRN Administration Nausea Ondansetron HCl 4 mg 04/22/20 19:00 04/23/20 11:04 Ondansetron Hcl 4 Mg/2 Ml Vial IVPUSH 4 mg Q8H MARLENA Administration Sodium Chloride 3 ml 04/22/20 16:00 04/23/20 07:38 0.9 % Sodium Chloride Flush 3 Ml Syringe IVFLUSH Not Given QSHIFT MARLENA Time Spent With Patient Time: Total time spent is greater than 50% in coordination of care (as docu mented) at patient's floor/unit and/or counseling patient: Time with patient: Greater than 35 minutes
--- NOTE | 2020-04-23 15:57 | HO.POSTANES ---
Post Anesthesia Evaluation Post Anesthesia Evaluation Vital Signs: Vital Signs Temp Pulse Resp BP Pulse Ox 04/23/20 13:30 178/82 H 04/23/20 12:46 180/79 H 04/23/20 12:01 192/88 H 04/23/20 11:11 98.4 F 18 180/75 H 96 04/23/20 10:27 198/88 H 04/23/20 10:26 208/98 H 04/23/20 07:26 106 H 04/23/20 07:13 99.1 F 111 H 18 182/70 H 98 04/23/20 06:08 164/82 H 04/23/20 05:06 91 162/81 H Anesthesia: General Endotracheal-GETA Mental Status: Awake Pain Control: Satisfactory Nausea/Vomiting: None Hydration: Adequate Anesthesia-Related Issues: No Anes. Related Issues
== END 2020-04-23 15:22 | disposition home or self-care (01) | DRG 403 ==
LOC: HO.SSSA 11:30 → HO.S3 11:54
PROVIDERS: Physician Assistant; Admitting Provider Surgery; PCP Nurse Practitioner Family; Visit Provider Surgery
PROC: 0DB64Z3 Excision of Stomach, Percutaneous Endoscopic Approach, Vertical (ICD-10-PCS; CPT 43845; principal; 2020-04-22 08:50)
DX: E66.01 Morbid (severe) obesity due to excess calories (principal); F90.9 Attention-deficit hyperactivity disorder, unspecified type; K44.9 Diaphragmatic hernia without obstruction or gangrene; I10 Essential (primary) hypertension; J45.909 Unspecified asthma, uncomplicated; Z20.822 Contact with and (suspected) exposure to COVID-19; Z68.41 Body mass index [BMI] 40.0-44.9, adult; Z88.0 Allergy status to penicillin; Z79.899 Other long term (current) drug therapy
CPT/HCPCS: 36415; 80048; 85025; 86850; 86900; 86901; 87635; 88307; 88342; 94640; C1776; J0131; J1100; J1170; J2250; J2405; J2765; J3010

== ENCOUNTER → 2020-04-27 11:46 | Outpatient (BNVA) | payer MEDICAID, SELFPAY | PROVIDERS: PCP Nurse Practitioner Family; Visit Provider Physician Assistant | DX: E66.01 Morbid (severe) obesity due to excess calories (principal); Z98.890 Other specified postprocedural states; Z87.19 Personal history of other diseases of the digestive system; Z98.84 Bariatric surgery status | CPT/HCPCS: 99212 ==

== ENCOUNTER → 2020-05-01 13:33 | Outpatient (BNVA) | payer MEDICAID, SELFPAY | PROVIDERS: PCP Nurse Practitioner Family; Visit Provider Physician Assistant | DX: E66.01 Morbid (severe) obesity due to excess calories (principal); I95.1 Orthostatic hypotension; Z98.84 Bariatric surgery status | CPT/HCPCS: 99212 ==

== ENCOUNTER → 2020-05-07 09:37 | Outpatient (BNVA) | payer MEDICAID, SELFPAY | PROVIDERS: PCP Family Medicine; Visit Provider Surgery | DX: E66.01 Morbid (severe) obesity due to excess calories (principal); Z68.41 Body mass index [BMI] 40.0-44.9, adult; Z98.84 Bariatric surgery status | CPT/HCPCS: 99212 ==

== ENCOUNTER → 2020-05-21 11:24 | Outpatient (BNVA) | payer MEDICAID, SELFPAY | PROVIDERS: PCP Family Medicine; Visit Provider Physician Assistant | DX: Z98.84 Bariatric surgery status (principal) | CPT/HCPCS: 99212 ==

== ENCOUNTER → 2020-05-25 08:58 | Outpatient (BNVA) | payer OTHER, SELFPAY | PROVIDERS: PCP Family Medicine; Visit Provider Dietitian, Registered ==

== ENCOUNTER → 2020-06-25 11:35 | Outpatient (BNVA) | payer OTHER, SELFPAY | PROVIDERS: PCP Family Medicine; Visit Provider Dietitian, Registered ==

== ENCOUNTER → 2020-07-16 10:06 | Outpatient (BNVA) | payer OTHER, SELFPAY | PROVIDERS: PCP Family Medicine; Visit Provider Physician Assistant | DX: E66.9 Obesity, unspecified (principal); Z68.37 Body mass index [BMI] 37.0-37.9, adult; K91.2 Postsurgical malabsorption, not elsewhere classified; Z90.3 Acquired absence of stomach [part of]; Z98.84 Bariatric surgery status; Z98.890 Other specified postprocedural states; Z87.19 Personal history of other diseases of the digestive system; Z71.3 Dietary counseling and surveillance | CPT/HCPCS: 99212 ==

== ENCOUNTER → 2020-08-13 11:36 | Outpatient (BNVA) | payer OTHER, SELFPAY | PROVIDERS: PCP Family Medicine; Referring Provider Family Medicine; Visit Provider Physician Assistant | DX: E66.9 Obesity, unspecified (principal); K91.2 Postsurgical malabsorption, not elsewhere classified; Z90.3 Acquired absence of stomach [part of]; Z98.84 Bariatric surgery status | CPT/HCPCS: 99212 ==

== ENCOUNTER → 2020-10-15 10:13 | Outpatient (BNVA) | payer OTHER, SELFPAY | PROVIDERS: PCP Nurse Practitioner Family; Referring Provider Family Medicine; Visit Provider Surgery | DX: E66.9 Obesity, unspecified (principal); Z68.33 Body mass index [BMI] 33.0-33.9, adult | CPT/HCPCS: 99212 ==

== ENCOUNTER → 2020-11-12 08:16 | Outpatient (BNVA) | payer OTHER, SELFPAY | PROVIDERS: PCP Nurse Practitioner Family; Visit Provider Dietitian, Registered | DX: E66.9 Obesity, unspecified (principal) | CPT/HCPCS: 97803 ==

== ENCOUNTER 2021-01-15 10:29 | Outpatient (REF) | payer OTHER, SELFPAY ==
[2021-01-15 12:01] LABS: Basophils Percent Auto 0.4 % (0-2); Hemoglobin 10.2 g/dl (12.0-16.0); MANUAL DIFF FLAG SCAN; Mean Corpuscular Volume 85.6 fL (80-98); PLT CLUMP 1; SCAN SMEAR FLAG 1
[2021-01-15 12:03] LABS: Eosinophils Absolute Auto 0.2 X10*3/uL (0.0-0.4); Eosinophils Percent Auto 3.3 % (0-4); Hematocrit 31.6 % (37-47); Imm Gran Abs Auto 0.02 X10*3/uL (0.00-0.03); Imm Gran Pct Auto 0.4 % (0.0-0.4); Lymphocytes Absolute Auto 1.4 X10*3/uL (1.2-4.9); Lymphocytes Percent Auto 29.3 % (20-40); Mean Corpuscular HGB Conc 32.3 g/dl (31.0-35.0); Mean Corpuscular Hemoglobin 27.6 pg (27.0-33.0); Monocytes Absolute Auto 0.5 X10*3/uL (0.1-1.2); Monocytes Percent Auto 9.3 % (2-11); Neutrophils Absolute Auto 2.8 X10*3/uL (2.0-8.3); Neutrophils Percent Auto 57.3 % (45-73); Red Blood Count 3.69 X10*6/uL (4.20-5.50); Red Cell Distribution Width 14.4 % (11.0-16.0); White Blood Count 4.8 X10*3/uL (4.8-10.8)
[2021-01-15 12:39] LABS: Alanine Aminotransferase 12 U/L (0-31); Alkaline Phosphatase 66 U/L (39-117); Anion Gap 9 (12-20); Aspartate Amino Transferase 16 U/L (5-31); Bilirubin Total 0.5 mg/dL (0.0-1.0); Blood Urea Nitrogen 14 mg/dL (9-16); C Reactive Protein 0.39 mg/dL (< or = 0.50); Calcium 9.9 mg/dL (8.4-10.2); Carbon Dioxide 28 mmol/L (22-29); Chloride 108 mmol/L (96-108); Cholesterol 311 mg/dL; Estimated Glomerular Filt Rate > 60; Glucose Fasting 83 mg/dL (60-99); HDL Cholesterol 54 mg/dL; Iron 58 mcg/dL (30-160); LDL Cholesterol Calculated 245 mg/dl; Percent Iron Saturation 26 % (15-50); Potassium 3.7 mmol/L (3.3-5.1); Sodium 141 mmol/L (135-145); Total Iron Binding Capacity 225 mcg/dL (228-428); Total Protein 6.5 g/dL (6.5-8.0); Triglycerides 60 mg/dL; Unsaturated Iron Binding 167 ug/dL
[2021-01-15 12:49] LABS: Estimated Average Glucose 103 mg/dL; Hemoglobin A1c % 5.2 %
[2021-01-15 12:50] LABS: SLIDE REVIEW VERIFIED
[2021-01-15 12:56] LABS: Thyroid Stimulating Hormone 0.72 uIU/mL (0.32-4.0); Vitamin D 25-OH Total 34.4 ng/mL (>30)
[2021-01-15 13:07] LABS: Vitamin B12 626 pg/mL (200-900)
[2021-01-21 12:21] LABS: Vitamin B1 22 nmol/L (8-30)
[2021-01-21 15:15] LABS: Vitamin A 35 mcg/dL (38-98)
== END 2021-01-15 10:30 | disposition home or self-care (01) ==
LOC: HO.LAB 10:29
PROVIDERS: Absent Provider Surgery; PCP Nurse Practitioner Family; Visit Provider Physician Assistant Surgical
DX: Z01.818 Encounter for other preprocedural examination (principal); K91.2 Postsurgical malabsorption, not elsewhere classified; E66.9 Obesity, unspecified; E65 Localized adiposity; Z79.899 Other long term (current) drug therapy; Z90.3 Acquired absence of stomach [part of]
CPT/HCPCS: 36415; 80053; 80061; 82306; 82607; 83036; 83540; 84425; 84443; 84590; 85025; 86140; 99212

== ENCOUNTER → 2021-02-11 07:52 | Outpatient (BNVA) | payer OTHER, SELFPAY | PROVIDERS: PCP Internal Medicine; Visit Provider Physician Assistant Surgical | DX: Z98.84 Bariatric surgery status (principal) | CPT/HCPCS: 99212 ==

== ENCOUNTER → 2021-03-10 08:00 | Outpatient (BNVA) | payer OTHER, SELFPAY | PROVIDERS: Visit Provider Dietitian, Registered | DX: E66.3 Overweight (principal); Z68.29 Body mass index [BMI] 29.0-29.9, adult | CPT/HCPCS: 97803 ==

== ENCOUNTER → 2021-06-29 09:30 | Outpatient (BNVA) | payer OTHER, SELFPAY | PROVIDERS: Visit Provider Physician Assistant Surgical | DX: E66.3 Overweight (principal); L98.7 Excessive and redundant skin and subcutaneous tissue; Z68.28 Body mass index [BMI] 28.0-28.9, adult | CPT/HCPCS: 99212 ==

== ENCOUNTER 2021-07-13 08:07 | Outpatient (REF) | payer OTHER, SELFPAY ==
[2021-07-13 08:30] LABS: MANUAL DIFF FLAG NO
[2021-07-13 08:59] LABS: Basophils Percent Auto 0.4 % (0-2); Eosinophils Absolute Auto 0.3 X10*3/uL (0.0-0.4); Hematocrit 32.8 % (37.0-47.0); Imm Gran Abs Auto 0.01 X10*3/uL (0.00-0.03); Imm Gran Pct Auto 0.2 % (0.0-0.4); Lymphocytes Absolute Auto 1.5 X10*3/uL (1.2-4.9); Lymphocytes Percent Auto 29.4 % (20-40); Mean Corpuscular HGB Conc 30.5 g/dl (31.0-35.0); Mean Corpuscular Hemoglobin 27.9 pg (27.0-33.0); Mean Corpuscular Volume 91.6 fL (80.0-98.0); Mean Platelet Volume 9.5 fL (9.4-12.3); Monocytes Absolute Auto 0.5 X10*3/uL (0.1-1.2); Monocytes Percent Auto 10.5 % (2-11); Neutrophils Absolute Auto 2.7 x10*3/uL (2.0-8.3); Neutrophils Percent Auto 53.5 % (45-73); Platelet Count 261 X10*3/uL (160-400); Red Blood Count 3.58 X10*6/uL (4.20-5.50); Red Cell Distribution Width 14.1 % (11.0-16.0)
[2021-07-13 09:30] LABS: Anion Gap 11 (12-20); Blood Urea Nitrogen 18 mg/dL (9-16); Calcium 9.7 mg/dL (8.4-10.2); Carbon Dioxide 25 mmol/L (22-29); Chloride 108 mmol/L (96-108); Estimated Glomerular Filt Rate 58; Glucose Random 73 mg/dL (60-115); Iron 49 mcg/dL (30-160); Percent Iron Saturation 20 % (15-50); Potassium 4.2 mmol/L (3.3-5.1); Sodium 140 mmol/L (135-145); Total Iron Binding Capacity 250 mcg/dL (228-428); Unsaturated Iron Binding 201 ug/dL
[2021-07-13 09:51] LABS: Ferritin 377 ng/mL (10-250); TSH reflex Free T4 0.79 uIU/mL (0.32-4.0); Vitamin D 25-OH Total 52.9 ng/mL (>30)
[2021-07-13 10:06] LABS: Folate 17.6 ng/mL (> or = 4.0); Vitamin B12 620 pg/mL (200-900)
[2021-07-16 23:11] LABS: Zinc 66 mcg/dL (60-130)
[2021-07-17 08:27] LABS: Vitamin B1 12 nmol/L (8-30)
[2021-07-20 03:21] LABS: Vitamin A 43 mcg/dL (38-98)
== END 2021-07-13 08:08 | disposition home or self-care (01) ==
LOC: HO.LAB 08:07
PROVIDERS: Visit Provider Physician Assistant Surgical
DX: E66.3 Overweight (principal)
CPT/HCPCS: 36415; 80048; 82306; 82607; 82728; 82746; 83540; 84425; 84443; 84590; 84630; 85025

== ENCOUNTER → 2021-12-10 10:10 | Outpatient (BNVA) | payer OTHER, SELFPAY | PROVIDERS: PCP Nurse Practitioner Family; Visit Provider Physician Assistant Surgical | DX: E66.3 Overweight (principal); L98.7 Excessive and redundant skin and subcutaneous tissue; Z68.27 Body mass index [BMI] 27.0-27.9, adult; Z98.84 Bariatric surgery status | CPT/HCPCS: 99212 ==

== ENCOUNTER → 2022-01-18 13:08 | Outpatient (BNVA) | payer OTHER, SELFPAY | PROVIDERS: PCP Family Medicine; Visit Provider Physician Assistant Surgical | DX: E66.3 Overweight (principal); L98.7 Excessive and redundant skin and subcutaneous tissue; Z98.84 Bariatric surgery status; Z68.27 Body mass index [BMI] 27.0-27.9, adult | CPT/HCPCS: 99212 ==

== ENCOUNTER → 2022-02-09 08:03 | Outpatient (BNVA) | payer OTHER, SELFPAY | PROVIDERS: PCP Family Medicine; Visit Provider Surgery | DX: E66.3 Overweight (principal); L03.90 Cellulitis, unspecified; Z68.28 Body mass index [BMI] 28.0-28.9, adult | CPT/HCPCS: Q3014 ==

== ENCOUNTER 2022-02-11 10:36 | Outpatient (REF) | payer OTHER, SELFPAY ==
[2022-02-11 11:04] LABS: MANUAL DIFF FLAG NO
[2022-02-11 11:52] LABS: Basophils Percent Auto 0.4 % (0-2); Eosinophils Absolute Auto 0.2 X10*3/uL (0.0-0.4); Eosinophils Percent Auto 4.4 % (0-4); Hematocrit 39.1 % (37.0-47.0); Hemoglobin 12.5 g/dl (12.0-16.0); Imm Gran Abs Auto 0.02 X10*3/uL (0.00-0.03); Imm Gran Pct Auto 0.4 % (0.0-0.4); Lymphocytes Absolute Auto 1.6 X10*3/uL (1.2-4.9); Lymphocytes Percent Auto 30.5 % (20-40); Mean Corpuscular Hemoglobin 28.6 pg (27.0-33.0); Mean Corpuscular Volume 89.5 fL (80.0-98.0); Mean Platelet Volume 9.7 fL (9.4-12.3); Monocytes Absolute Auto 0.4 X10*3/uL (0.1-1.2); Neutrophils Percent Auto 56.3 % (45-73); Platelet Count 228 X10*3/uL (160-400); Red Blood Count 4.37 X10*6/uL (4.20-5.50); Red Cell Distribution Width 13.5 % (11.0-16.0); White Blood Count 5.3 X10*3/uL (4.8-10.8)
[2022-02-11 11:59] LABS: INTERNATIONAL NORM RATIO 0.9 (0.9-1.1); Prothrombin Time 10.8 SEC (10.0-13.1)
[2022-02-11 12:02] LABS: Partial Thromboplastin Time 28.6 SEC (26.0-36.4)
[2022-02-11 12:08] LABS: Estimated Average Glucose 94 mg/dL; Hemoglobin A1c % 4.9 %
[2022-02-11 12:23] LABS: Alanine Aminotransferase 17 U/L (0-31); Albumin Level 4.2 g/dL (3.5-5.0); Alkaline Phosphatase 82 U/L (39-117); Anion Gap 18 (12-20); Aspartate Amino Transferase 20 U/L (5-31); Bilirubin Total 0.6 mg/dL (0.0-1.0); Blood Urea Nitrogen 17 mg/dL (9-16); C Reactive Protein 0.28 mg/dL (< or = 0.50); Calcium 9.8 mg/dL (8.4-10.2); Carbon Dioxide 20 mmol/L (22-29); Chloride 109 mmol/L (96-108); Cholesterol 276 mg/dL; Estimated Glomerular Filt Rate 55; Glucose Random 63 mg/dL (60-115); HDL Cholesterol 77 mg/dL; Iron 79 mcg/dL (30-160); LDL Cholesterol Calculated 189 mg/dl; Percent Iron Saturation 29 % (15-50); Sodium 143 mmol/L (135-145); Total Iron Binding Capacity 269 mcg/dL (228-428); Total Protein 7.2 g/dL (6.5-8.0); Triglycerides 52 mg/dL; Unsaturated Iron Binding 190 ug/dL
[2022-02-11 12:39] LABS: Vitamin B12 1174 pg/mL (200-900)
[2022-02-11 12:48] LABS: Ferritin 401 ng/mL (10-250); TSH reflex Free T4 0.56 uIU/mL (0.32-4.0)
[2022-02-11 13:25] LABS: Vitamin D 25-OH Total 51.4 ng/mL (>30)
[2022-02-13 11:27] LABS: Calcium (PTHI) 9.7 mg/dL (8.6-10.4); PTHI 57 pg/mL (16-77)
[2022-02-15 17:55] LABS: Zinc 71 mcg/dL (60-130)
[2022-02-17 15:26] LABS: Vitamin A 50 mcg/dL (38-98)
[2022-02-18 06:07] LABS: Vitamin B1 10 nmol/L (8-30)
== END 2022-02-11 10:37 | disposition home or self-care (01) ==
LOC: HO.LAB 10:36
PROVIDERS: Surgery; Visit Provider Physician Assistant Surgical
DX: E66.3 Overweight (principal); K91.2 Postsurgical malabsorption, not elsewhere classified; Z90.3 Acquired absence of stomach [part of]
CPT/HCPCS: 36415; 80053; 80061; 82306; 82607; 82728; 83036; 83540; 83970; 84425; 84443; 84590; 84630; 85025; 85610; 85730; 86140

== ENCOUNTER 2022-03-03 05:55 | Day surgery (SDC) | payer OTHER, SELFPAY ==
[2022-02-21 10:01] VITALS: BMI 26.9
--- NOTE | 2022-02-25 15:29 | MHC.SHP ---
Pre-Procedural Eval Section A Date of Service: 02/25/22 The patient is an INPATIENT: No The History & Physical has been completed within 30 days and I have reviewed it.: Yes Section B Chief Complaint: Excessive and redundant skin and subcutaneous tiss Relevant Family History (Specify if Yes): No Relevant Social History: None Present Medications: None Medical History: No relevant PMH History of Previous Operations: Relevant previous surgery/procedure and date(s) (Lap sleeve gastrectomy) Allergies: Allergies Allergy/AdvReac Type Severity Reaction Status Date / Time fish derived [fish] Allergy Severe Anaphylaxis Verified 02/21/22 09:46 amoxicillin [Augmentin] Allergy Intermediate Rash Verified 02/21/22 09:46 clavulanic acid [Augmentin] Allergy Intermediate Rash Verified 02/21/22 09:46 Review of Systems Sugical H&P ROS: Negative: Constitution, Cardiovascular, Respiratory, Neurological, Psychiatric, Hem-Onc, Allergic/Immunologic, Gastrointestinal, Genitourinary, Musculoskeletal, Integumentary, Endocrine and Eyes/Ears/Nose/Throat Exam Surgical H&P Exam: Normal: HEENT, Normal: Heart, Normal: Lungs, Normal: Extremities, Normal: Abdomen, Normal: Skin and Normal: Neurological Plan Diagnosis/Plan: Unchanged I have reviewed the history and physical and performed a pertinent physical examination on my patient. No changes have occurred unless specified.
--- NOTE | 2022-03-02 09:07 | P.CONAN_ITS ---
Documented by User: Kathie Spicer NP 03/02/22 09:09 HPI - Anesthesia Eval Consult details Narrative: 61yo F for Panniculectomy, Bilateral Brachioplasty PMFSH Active Problems Active Problems: All Active Problems (Updated 02/09/22 @ 08:20 by Jacinto Sung MD) Morbid obesity (Acute) Paraesophageal hernia (Acute) S/P laparoscopic sleeve gastrectomy (Acute) S/P repair of paraesophageal hernia (Acute) BMI 33.0-33.9,adult (Acute) Overweight (Acute) Excess skin (Acute) Cellulitis (Acute) Obesity with body mass index (BMI) of 30.0 to 39.9 (Acute) Intestinal malabsorption following gastrectomy (Acute) Orthostatic hypotension (Acute) Asthma (Acute) Hypertension (Acute) Past Medical History Medical History ADHD Arthritis Asthma Body mass index (BMI) of 40.0 to 44.9 in adult Hypertension Intestinal malabsorption following gastrectomy Lab test negative for COVID-19 virus Morbid obesity due to excess calories Obesity with body mass index (BMI) of 30.0 to 39.9 Orthostatic hypotension Preoperative examination Shortness of breath Family History Family History Father Heart disease Mother Breast cancer Brother No problems noted. Son No problems noted. Daughter No problems noted. Sister No problems noted. Surgical History Surgical History H/O colonoscopy History of gastric bypass Hx laparoscopic cholecystectomy Status post breast reduction Total knee replacement status Social History Social History Are you a primary healthcare interpreter to a significant other at home: No Do you presently have visiting nurse or other home services: No Alcohol intake: former Patient Tobacco Use Status: Never used Tobacco Use of substances other than those prescribed or required for medical reasons: Yes Substance Use Type: Marijuana Substance Use Frequency: Occasionally Have you been hit, kicked, punched, or otherwise hurt by someone within the past year? If so, by whom?: No Are you DNR?: No Advance Directives: No Advance Directives Information Provided: Yes Advance Directives on File: No Recently lost weight without trying: No How much weight loss: 2-13 pounds Patient : No : No Poor oral hygiene: No (Intact teeth) service: No Current occupational status: unemployed Meds Allergies Allergy/AdvReac Type Severity Reaction Status Date / Time fish derived [fish] Allergy Severe Anaphylaxis Verified 03/03/22 06:32 amoxicillin [Augmentin] Allergy Intermediate Rash Verified 03/03/22 06:32 clavulanic acid [Augmentin] Allergy Intermediate Rash Verified 03/03/22 06:32 Home Medications Medication Instructions Recorded Confirmed Last Taken Type fluticasone 500 mcg-salmeterol 50 1 inh inhalation BID 02/26/20 02/21/22 Unknown History mcg/dose blistr powdr for inhalation (Advair Diskus) albuterol sulfate 90 mcg/actuation 2 puff inhalation Q4-6H PRN 04/17/20 02/21/22 Unknown History aerosol inhaler (ProAir HFA) Shortness Of Breath Bariatric MVI PO 07/16/20 02/09/22 Unknown History dextroamphetamine-amphetamine 5 mg 5 mg PO BID 02/09/22 02/21/22 Unknown History tablet (Adderall) Exam Exam Date and Time: March 02, 2022 0907 Height,Weight and Vital Signs: Height 5 ft 2 in Weight 66.678 kg Pertinent Lab Results Pertinent Lab Results: Laboratory Tests 02/25/22 09:54 Blood Type A Positive Antibody Screen NEGATIVE Laboratory Tests 02/11/22 02/11/22 11:03 11:03 WBC 5.3 Hgb 12.5 D Hct 39.1 Plt Count 228 Sodium 143 Potassium 4.0 Chloride 109 H Carbon Dioxide 20 L BUN 17 H Creatinine 1.03 Assessment and Plan Assessment Anesthesia Assessment: Chart Reviewed Documented by User: Frederick Watts MD 03/03/22 17:28 [facility] Past Medical History Medical History ADHD Arthritis Asthma Body mass index (BMI) of 40.0 to 44.9 in adult Hypertension Intestinal malabsorption following gastrectomy Lab test negative for COVID-19 virus Morbid obesity due to excess calories Obesity with body mass index (BMI) of 30.0 to 39.9 Orthostatic hypotension Preoperative examination Shortness of breath Functional capacity: independent ambulation Family History Family History Father Heart disease Mother Breast cancer Brother No problems noted. Son No problems noted. Daughter No problems noted. Sister No problems noted. Family history of problems with anesthesia: No Surgical History Surgical History H/O colonoscopy History of gastric bypass Hx laparoscopic cholecystectomy Status post breast reduction Total knee replacement status History of Problems with Anesthesia: No Social History Social History Are you a primary healthcare interpreter to a significant other at home: No Do you presently have visiting nurse or other home services: No Alcohol intake: former Patient Tobacco Use Status: Never used Tobacco Use of substances other than those prescribed or required for medical reasons: Yes Substance Use Type: Marijuana Substance Use Frequency: Occasionally Have you been hit, kicked, punched, or otherwise hurt by someone within the past year? If so, by whom?: No Are you DNR?: No Advance Directives: No Advance Directives Information Provided: Yes Advance Directives on File: No Recently lost weight without trying: No How much weight loss: 2-13 pounds Patient : No : No Poor oral hygiene: No (Intact teeth) service: No Current occupational status: unemployed Meds Allergies Allergy/AdvReac Type Severity Reaction Status Date / Time fish derived [fish] Allergy Severe Anaphylaxis Verified 03/03/22 06:32 amoxicillin [Augmentin] Allergy Intermediate Rash Verified 03/03/22 06:32 clavulanic acid [Augmentin] Allergy Intermediate Rash Verified 03/03/22 06:32 Home Medications Medication Instructions Recorded Confirmed Last Taken Type fluticasone 500 mcg-salmeterol 50 1 inh inhalation BID 02/26/20 02/21/22 Unknown History mcg/dose blistr powdr for inhalation (Advair Diskus) albuterol sulfate 90 mcg/actuation 2 puff inhalation Q4-6H PRN 04/17/20 02/21/22 Unknown History aerosol inhaler (ProAir HFA) Shortness Of Breath Bariatric MVI PO 07/16/20 02/09/22 Unknown History dextroamphetamine-amphetamine 5 mg 5 mg PO BID 02/09/22 02/21/22 Unknown History tablet (Adderall) Exam Airway Mallampati Class: IV TM Dist: >3cm Neck ROM: Full Loose/Missing/Broken Teeth: Yes Heart: S1,S2 Lungs: b/l breath sounds Assessment and Plan Assessment Anesthesia Assessment: Anesthesia Plan Discussed Final Anesthetic Review Family History of Problems with Anesthesia: No History of Problems with Anesthesia: No NPO: Yes ASA Class: III Final Preanesthetic Review: Meds/Allgs Chart Reviewed, Consent Obtained/Reviewed and Anes Risks/Benef Reviewed Patient Risk: Intermediate Procedure Risk: Intermediate Anesthetic Plan Anesthetic Plan: GA Disposition: Standard PACU
[2022-03-02 12:31] LABS: COVID-19 Test Negative (Negative); IDNOW Serial# 9DB6401D
[2022-03-03] VITALS (11 sets, daily range): BP systolic 122–146; BP diastolic 47–86; PULSE 44–77; RESP 8–16; TEMP 36.1–36.3; O2SAT 94–100
[2022-03-03] MEDS: Lactated Ringers 1,000 ML 100 ML IVCONT (06:31)
--- NOTE | 2022-03-03 07:52 | P.BOP_ITS ---
Brief Operative Note Date of Service: 03/03/22 Pre-op diagnosis: Panniculitis and excess skin Post-op diagnosis: same Procedure: PROCEDURE: Panniculectomy with umbilical transposition and bilateral subcutaneous fat flaps, bilateral brachioplasty INDICATION: This a 61 year old female who underwent laparoscopic sleeve gastrectomy on 04/22/2020. She had an excellent result achieving a BMI of 27.7 kg/m2 with a total weight loss of 88lbs, or 36.6% of her TBWL. As a result, she has developed panniculitis which has not resolved despite continuous use of clotrimazole ointment as well as skin irritation and intetrigo in both upper arms. On exam she has extreme skin laxity due to massive weight loss and age with the abdominal pannus completely hiding the genitalia and the upper arms 6 cm below the level of the triceps. Panniculectomy with bilateral brachioplasty was recommended. We discussed the two options for the panniculectomy of using a combined vertical and horizontal incisions or just a horizontal (bikini) incision. It was my recommendation to do only horizontal incision based on her body habitus and skin laxity. The patient agreed with this. Risks and complications were discussed with the patient including bleeding, infection, umbilical loss, flap necrosis, asymmetry, dehiscence, seroma, VTE. The patient understood the risks and was in agreement to proceed with surgery. PROCEDURE: The incisions were appropriately marked at the preop area with the patient standing and laying down. After induction of general anesthesia a Corrales catheter and pneumatic compression devices were placed. The patient was prepped and draped in the usual sterile manner and the incisions were marked again and confirmed. In similar fashion both upper arms were also marked when the patient was standing. The upper arms were performed first. The skin was infiltrated with lidocaine and epinephrine. Skin was excised with the #15 blade. Cautery was used to separate the skin from subcutaneous tissues. Careful attention was paid to make sure that the plain of excision was superficial as close to the skin as possible. The right upper arm skin was 28 cm x 11 cm and the left 32 cm x 11 cm. Skin was closed in two layers using interrupted 3.0 Monocryl sutures for the dermis and 4.0 subcuticular Monocryl suture for the skin. The skin was infiltrated with lidocaine and epinephrine. The #10 blade scalpel was used for the large incisions and the #15 blade scalpel for the umbilicus. Cautery was used to divide the subcutaneous tissues until the fascia was identified. Then I used the Thunderbeat (Olympus) to separate the pannus from the fascia. The inferior incision was made initially and I mobilized the flap for a several centimeters cephalad to the umbilicus. The umbilicus was incised circumferentially and detached from the surrounding tissues all the way to the fascia while its stalk was preserved. With the patient in reflex position I confirmed that the skin flaps were appropriate and would allow for the tissues to come together with reasonable tension. At that point a horizontal incision was made 4 cm above the umbilicus. #10 blade was used for the skin, cautery for the dermis and the Thunderbeat for the remaining tissues. A subcutaneous fat flap was raised from the upper skin flap in order to fill the space under the skin and support the closure of the two flaps. In addition the inferior flap was mobilized caudally for a few centimeters to create a space for the subcutaneous fat flap as well as relieve tension from the closure. A circumferential incision was made at the area where the umbilicus would be re-implanted. The umbilicus was appropriately oriented and was delivered through the defect and was secured in place with a Alonzo. No bleeding was noted anywhere. One LEMUEL drain was placed from the left corner of the horizontal incision across the wound and was secured in place with a silk suture. A total of 14ml of Zynrelef was applied on top of the fascia and under the subcutaneous fat flaps. The subcutaneous fat flap was secured under the inferior flap with several interrupted 3.0 Monocryl sutures. The two flaps were brought together and were attached at the midline of the horizontal incision with a #3.0 Monocryl suture. At that point the umbilicus was properly oriented and was re-approximated to the skin with 8 interrupted 3.0 Monocryl sutures. In a similar fashion the skin flaps were re-approximated with multiple 3.0 Monocryl sutures. The skin was closed in all incisions and umbilicus with 4.0 Monocryl sutures. Steri-strips, xeroform gauzes and gauzes were used to cover the incisions. An abdominal binder was also placed. The was awaken and was transferred to the recover room in a stable condition. I was present and performed the entire procedure. Mr. Stephenson was the life science research assistant and Ms Goddard the second assistant warehouse manager. Levy Sung MD, PhD, FACS Surgeon: Jacinto Sung MD Surgeon: Jacinto Sung MD Anesthesia: GETA, local and other (& ml of Zynrelef) Was an Food Beverage Attendant used for this Procedure?: No Food Beverage Attendant: Maico Stephenson Estimated blood loss (mL): 10 IV fluids (mL): 3,000 Urine output (mL): 400 Pathology: other (1) abdominal pannus 2) right upper arm skin, 3) left upper arm skin) Condition: stable Disposition: PACU
[2022-03-03] MEDS: ondansetron HCL 4 MG/2 ML VIAL IVPUSH (16:45)
--- NOTE | 2022-03-04 09:17 | W.MHC.F2F ---
Service Date Service Date: 03/04/22 Encounter Date of encounter: 03/03/22 Reasons for Services Signs and symptoms assessed: s/p panniculectomy and bilateral brachioplasty Reason for fci: postoperative assessment and/or care Homebound: Leaving the home is medically contraindicated at this time without the asist of a device and/or another person due th the listed conditions above and below. Reason homebound: unable to drive Certification: Based on the above findings, I certify that this patient is confined to the home and needs intermittent fci care, physical therapy and/or speech therapy, or continues to need occupational therapy. The patient is under my care, and I have initiated the establishment of the plan of care. The patient will be followed by a physician who will periodically review the plan of care.
== END 2022-03-03 18:50 | disposition home or self-care (01) ==
LOC: HO.SSS 05:56
PROVIDERS: Physician Assistant Surgical; PCP Nurse Practitioner Family; Visit Provider Surgery
PROC: 0JB80ZZ Excision of Abdomen Subcutaneous Tissue and Fascia, Open Approach (ICD-10-PCS; CPT 15830; principal; 2022-03-03 07:30)
PROC: (CPT 15836; 2022-03-03 07:30)
DX: L98.7 Excessive and redundant skin and subcutaneous tissue (principal); M79.3 Panniculitis, unspecified; K91.2 Postsurgical malabsorption, not elsewhere classified; Z90.3 Acquired absence of stomach [part of]; E66.3 Overweight; Z68.28 Body mass index [BMI] 28.0-28.9, adult; F90.9 Attention-deficit hyperactivity disorder, unspecified type; I10 Essential (primary) hypertension; J45.909 Unspecified asthma, uncomplicated; F12.90 Cannabis use, unspecified, uncomplicated; Z79.51 Long term (current) use of inhaled steroids; Z79.899 Other long term (current) drug therapy; Z88.1 Allergy status to other antibiotic agents; Z90.49 Acquired absence of other specified parts of digestive tract; L03.90 Cellulitis, unspecified; Z20.822 Contact with and (suspected) exposure to COVID-19
CPT/HCPCS: 15830; 15847; 15836; 86850; 86900; 86901; 87635; 88304; C9088; J0131; J1100; J1170; J1956; J2250; J2370; J2405; J2550; J3010; J3370

== ENCOUNTER → 2022-03-11 13:03 | Outpatient (BNVA) | payer OTHER, SELFPAY | PROVIDERS: PCP Family Medicine; Visit Provider Physician Assistant Surgical | DX: Z48.89 Encounter for other specified surgical aftercare (principal); E66.3 Overweight; Z68.26 Body mass index [BMI] 26.0-26.9, adult; Z98.84 Bariatric surgery status | CPT/HCPCS: 99212 ==

== ENCOUNTER → 2022-03-18 10:52 | Outpatient (BNVA) | payer OTHER, SELFPAY | PROVIDERS: PCP Nurse Practitioner Family; Visit Provider Physician Assistant Surgical | DX: Z48.89 Encounter for other specified surgical aftercare (principal); Z98.84 Bariatric surgery status | CPT/HCPCS: 99212 ==

== ENCOUNTER → 2022-03-25 09:00 | Outpatient (BNVA) | payer OTHER, SELFPAY | PROVIDERS: PCP Family Medicine; Visit Provider Physician Assistant Surgical | DX: Z79.01 Long term (current) use of anticoagulants (principal) ==

== ENCOUNTER 2022-03-25 09:54 | Outpatient (REF) | payer OTHER, SELFPAY | END 2022-03-25 09:55 | disposition home or self-care (01) | LOC: HO.US 09:54 | PROVIDERS: Visit Provider Physician Assistant Surgical | DX: R60.0 Localized edema (principal); Z98.890 Other specified postprocedural states; E66.3 Overweight; Z98.84 Bariatric surgery status | CPT/HCPCS: 93971; 99212 ==

== ENCOUNTER → 2022-03-31 08:57 | Outpatient (BNVA) | payer OTHER, SELFPAY | PROVIDERS: PCP Family Medicine; Visit Provider Physician Assistant Surgical | DX: Z98.890 Other specified postprocedural states (principal); Z98.84 Bariatric surgery status | CPT/HCPCS: 99212 ==

== ENCOUNTER → 2022-04-14 09:44 | Outpatient (BNVA) | payer OTHER, SELFPAY | PROVIDERS: PCP Family Medicine; Visit Provider Physician Assistant Surgical | DX: E66.3 Overweight (principal); Z98.890 Other specified postprocedural states; Z98.84 Bariatric surgery status; Z68.26 Body mass index [BMI] 26.0-26.9, adult | CPT/HCPCS: 99212 ==

== ENCOUNTER → 2022-04-20 14:28 | Outpatient (BNVA) | payer OTHER, SELFPAY | PROVIDERS: PCP Nurse Practitioner Family; Visit Provider Physician Assistant Surgical | DX: Z13.89 Encounter for screening for other disorder (principal) ==

== ENCOUNTER → 2022-06-16 15:28 | Outpatient (BNVA) | payer OTHER, SELFPAY | PROVIDERS: PCP Nurse Practitioner Family; Visit Provider Physician Assistant Surgical | DX: E66.3 Overweight (principal); Z68.27 Body mass index [BMI] 27.0-27.9, adult; Z98.84 Bariatric surgery status; Z98.890 Other specified postprocedural states | CPT/HCPCS: 99212 ==

== ENCOUNTER → 2022-09-13 09:05 | Outpatient (BNVA) | payer OTHER, SELFPAY | PROVIDERS: PCP Family Medicine; Visit Provider Physician Assistant Surgical | DX: E66.09 Other obesity due to excess calories (principal); K90.49 Malabsorption due to intolerance, not elsewhere classified; Z68.29 Body mass index [BMI] 29.0-29.9, adult; Z90.49 Acquired absence of other specified parts of digestive tract; Z98.84 Bariatric surgery status; Z98.890 Other specified postprocedural states | CPT/HCPCS: 99212 ==

== ENCOUNTER 2022-12-30 08:03 | Outpatient (AMB) | payer OTHER, SELFPAY ==
--- NOTE | 2022-12-30 08:17 | A.OFFVIS_ITS ---
Intake VS Expanded 12/30/22 08:19 Height 5 ft 2 in Weight 156 lb 12.8 oz BMI 28.7 BP 146/70 H Blood Pressure Location Rt brachial Blood Pressure Position Sitting Respiratory Rate 16 Pulse 75 Pulse Source Pulse Oximeter Temp 97.7 F Temperature Source Temporal Artery Scan Pulse Oximetry 98 Oxygen Delivery Method Room Air Body Fat 47.0 Body Fat Percentage 30.0 Free Fat Mass 109.8 Muscle Mass 104.2 Visceral Mass 8.0 Water Mass 77.6 BMR 1,461 Intake Visit Reasons: (OV) PO LSG 04/22/19 Allergies fish derived [fish] Allergy (Severe, Verified 12/30/22 08:19) Anaphylaxis amoxicillin [Augmentin] Allergy (Intermediate, Verified 12/30/22 08:19) Rash clavulanic acid [Augmentin] Allergy (Intermediate, Verified 12/30/22 08:19) Rash Medication List - Last Reconciled 12/30/22 by Halina Lemons PA-C albuterol sulfate 90 mcg/actuation (ProAir HFA) 2 puffs inhalation Q4-6H PRN [Bariatric MVI PO] dextroamphetamine-amphetamine 5 mg (Adderall) 5 mg PO BID fluticasone propion-salmeterol 500-50 mcg/dose (Advair Diskus) 1 inh inhalation BID thiamine HCl (vitamin B1) 100 mg PO DAILY vitamin A palmitate 10,000 units PO DAILY HPI HPI Comments History of Present Illness Details Pt had LSG on Apr 22, 2019 (now 3 years and 9 mos) and panniculectomy on Mar 03 2022. Unsure of what her goal weight is. In September she was noted to have a 2x 4 cm area over mons pubis that was firm but not tender. Patient is unsure if it is still there or not, it is not bothering her. 7am - tea with whole milk and 2 TBL stuart agen and 1/2 tsp honey 8am - 1/2 yogurt and 1/4 c Kashi cereal (13g ) =22 g 12 pm -1 slice ww bread with L&T with tu rkey. 3pm - PB cracker with an apple 6 - 7 pm - 10 oz?? of protien, bread or sweet potato 1oz and 1 oz salad may have ice cream after dinnr - 2d/ week Drinks 20 gram bottle protein water per day. Exercise - Has membership to gym. daily - walks 45 minutes 1.5 miles - 150 - 200 calories bid. Gym 3d/ week walk 1 mile on treadmill with weights or does ST classes. [facility] Medical History ADHD Arthritis Asthma Body mass index (BMI) of 40.0 to 44.9 in adult Hypertension Intestinal malabsorption following gastrectomy Lab test negative for COVID-19 virus Morbid obesity due to excess calories Obesity with body mass index (BMI) of 30.0 to 39.9 Orthostatic hypotension Preoperative examination Shortness of breath Surgical History History of gastric bypass Total knee replacement status H/O colonoscopy Hx laparoscopic cholecystectomy Status post breast reduction Family History Father Heart disease Mother Breast cancer Brother No problems noted. Son No problems noted. Daughter No problems noted. Sister No problems noted. Social History Are you a primary intensive care medicine specialist to a significant other at home: No Do you presently have visiting nurse or other home services: No Alcohol intake: current Alcohol intake frequency: holidays/special occasions only Patient Tobacco Use Status: Never used Tobacco Substance Use Type: Marijuana service: No Current occupational status: unemployed Physical Exam Vital Signs: Last Vital Signs Temp 97.7 F 12/30/22 08:19 Pulse 75 12/30/22 08:19 Resp 16 12/30/22 08:19 BP 146/70 H 12/30/22 08:19 Pulse Ox 98 12/30/22 08:19 Oxygen Delivery Method Room Air 12/30/22 08:19 BMI result Body Mass Index 28.7 Const General: cooperative, healthy appearing and comfortable GI Inspection: Yes incision (well healed, 2 x 4 cm area of firmness over mons pubis, non tender) Assessment & Plan Assessment & Plan (1) Overweight: Code(s): E66.3 - Overweight Plan: Pt has done extremely well with maintaining her weight loss and has lost another 4 lbs since September. She is unclear of what her goal weight is but is open to suggestions. We discussed a healthy BMIfor her would be about 135 lbs. Indurated area below panniculecotmy incision is most likely residual tissue inflammation, not fluid collection and may not resolved. No treatment needed for this, patient is comfortable with this decision. Meal plan goals - 70 - 75 grams of protein per day and not more than 8 oz at any meal - she will check to see how much she is really eating. Exercise - I recommended she increase the intensity of her walks/treadmill to burn about 350 claories 5d/ week (can dcrease frequency) and continue ST 3 d/week. Next appt with Shelley in Apr for 4 year post op appt with labs. I spent 30 minutes in total with patient reviewing/updating records, examining the patient and counseling the patient on weight management as detailed above. (2) S/P laparoscopic sleeve gastrectomy: Code(s): Z98.84 - Bariatric surgery status (3) S/P panniculectomy: Code(s): Z98.890 - Other specified postprocedural states (4) S/P brachioplasty: Code(s): Z98.890 - Other specified postprocedural states Coding Level of Care Code Est Pt Level 4 (43169) Diagnoses Overweight E66.3 S/P laparoscopic sleeve gastrectomy Z98.84 S/P panniculectomy Z98.890 S/P brachioplasty Z98.890
[2022-12-30 08:19] VITALS: BP 146/70; PULSE 75; RESP 16; TEMP 36.5; O2SAT 98; BMI 28.7
== END 2022-12-30 09:03 | disposition home or self-care (01) ==
PROVIDERS: PCP Family Medicine; Visit Provider Physician Assistant
DX: E66.3 Overweight (principal); Z98.84 Bariatric surgery status; Z98.890 Other specified postprocedural states
CPT/HCPCS: 99214

== ENCOUNTER → 2022-12-30 08:03 | Outpatient (BNVA) | payer OTHER, SELFPAY | PROVIDERS: PCP Family Medicine; Visit Provider Physician Assistant | DX: E66.3 Overweight (principal); Z98.84 Bariatric surgery status; Z98.890 Other specified postprocedural states; Z68.28 Body mass index [BMI] 28.0-28.9, adult | CPT/HCPCS: 99212 ==

== ENCOUNTER 2023-04-25 10:04 | Outpatient (AMB) | payer OTHER, SELFPAY ==
--- NOTE | 2023-04-25 09:40 | A.OFFVIS_ITS ---
Intake VS Expanded 04/25/23 09:46 Height 5 ft 2 in Weight 163 lb BMI 29.8 Intake Visit Reasons: (TELEPHONE) PO LSG 04/22/19 Allergies fish derived [fish] Allergy (Severe, Verified 12/30/22 08:19) Anaphylaxis amoxicillin [Augmentin] Allergy (Intermediate, Verified 12/30/22 08:19) Rash clavulanic acid [Augmentin] Allergy (Intermediate, Verified 12/30/22 08:19) Rash Medication List - Last Reconciled 04/25/23 by DELMAR Sheppard albuterol sulfate 90 mcg/actuation (ProAir HFA) 2 puffs inhalation Q4-6H PRN [Bariatric MVI PO] dextroamphetamine-amphetamine 5 mg (Adderall) 5 mg PO BID fluticasone propion-salmeterol 500-50 mcg/dose (Advair Diskus) 1 inh inhalation BID thiamine HCl (vitamin B1) 100 mg PO DAILY vitamin A palmitate 10,000 units PO DAILY HPI HPI Comments History of Present Illness Details This?is a?62?yo female who is s/p LSG 04/22/2019. Presents for 4 year post op visit. Weight at last visit on 12/30/2022 was 156.8 pounds with a BMI of 28.7, weight today is 163 pounds, representing a 6.2 pound weight gain with a BMI today of 29.8.? No complaints of nausea, emesis, abdominal pain or reflux, or constipation. Pt reports area under panniculectomy incision is not painful, no increase in swelling or pain, seems improved. Present meal plan includes: 7am - tea with whole milk and 2 Tbsp col lagen and 1/2 tsp honey 8am - 1/2 yogurt and 1/4 c Kashi cereal (13g) = 22 g, pr cereal with pomegranate seeds and 1% milk, will add fruit/berries 12 pm -1 slice ww bread with L&T with tu heathey, or lately trying to have more s alads with protein 3pm - PB cracker with an apple 6-7 pm - 6oz protein, bread or sweet pot mona 1oz and 1oz salad- trying to watch portion sizes may have ice cream after dinner - 2d/ week No longer drinking protein water Exercise - gym 5x/week- does [employer] 17 flights plus walking 1.5-2 miles. Does some strength training at home but having some shoulder pain/problems so starting PT. [facility] Medical History ADHD Arthritis Asthma Body mass index (BMI) of 40.0 to 44.9 in adult Hypertension Intestinal malabsorption following gastrectomy Lab test negative for COVID-19 virus Morbid obesity due to excess calories Obesity with body mass index (BMI) of 30.0 to 39.9 Orthostatic hypotension Preoperative examination Shortness of breath Surgical History History of gastric bypass Total knee replacement status H/O colonoscopy Hx laparoscopic cholecystectomy Status post breast reduction Family History Father Heart disease Mother Breast cancer Brother No problems noted. Son No problems noted. Daughter No problems noted. Sister No problems noted. Social History Are you a primary hemodialysis patient care specialist to a significant other at home: No Do you presently have visiting nurse or other home services: No Alcohol intake: current Alcohol intake frequency: holidays/special occasions only Comment: has knee arthritis-uses cane Patient Tobacco Use Status: Never used Tobacco Substance Use Type: Marijuana service: No Current occupational status: unemployed Assessment & Plan Assessment & Plan (1) S/P brachioplasty: Code(s): Z98.890 - Other specified postprocedural states (2) S/P panniculectomy: Code(s): Z98.890 - Other specified postprocedural states (3) S/P laparoscopic sleeve gastrectomy: Code(s): Z98.84 - Bariatric surgery status (4) Overweight: Code(s): E66.3 - Overweight Plan Pt is happy with current meal plan, current weight. We discussed that if she notices weight begin to creep up or becomes dissatisfied with current measurements, can make adjustments to help with weight loss. Goal 60-70g protein per day. Suggested scar massage for area of upper arm that sometimes feels tight after brachioplasty. Labs ordered. RTC 6 months per pt preference. Patient is overweight and is not considered stable at this time. I spent a total of 30 minutes reviewing/updating records, examining the patient and counseling the patient on weight management as detailed above. Orders: Orders Lipid Panel Today E66.3 - Overweight, Z98.84 - Bariatric surgery status IRON PROFILE Today E66.3 - Overweight, Z98.84 - Bariatric surgery status Comprehensive Met. Panel Today E66.3 - Overweight, Z98.84 - Bariatric surgery status Vitamin B12 and Folate Today E66.3 - Overweight, Z98.84 - Bariatric surgery status Vitamin B1 Today E66.3 - Overweight, Z98.84 - Bariatric surgery status Ferritin Today E66.3 - Overweight, Z98.84 - Bariatric surgery status Insulin Today E66.3 - Overweight, Z98.84 - Bariatric surgery status Hemoglobin A1c Today E66.3 - Overweight, Z98.84 - Bariatric surgery status Complete Blood Count Auto Diff Today E66.3 - Overweight, Z98.84 - Bariatric surgery status Zinc Today E66.3 - Overweight, Z98.84 - Bariatric surgery status C Reactive Protein Today E66.3 - Overweight, Z98.84 - Bariatric surgery status Vitamin A Today E66.3 - Overweight, Z98.84 - Bariatric surgery status TSH reflex Free T4 Today E66.3 - Overweight, Z98.84 - Bariatric surgery status Vitamin D 25-OH Total Today E66.3 - Overweight, Z98.84 - Bariatric surgery status Telehealth Telehealth Location of provider rendering services: practice address Location of patient: address on file Patient Identification confirmed using: Name, : Yes Telehealth method: voice only Patient verbally consented to treatment: Yes Patient verbally consented to billing insurance company: Yes Patient informed of any privacy concerns related to visit: Yes Minutes spent on Phone/Video with Pt.: 15 Coding Level of Care Code Tele Est Pt Level 4 (01091) Diagnoses S/P brachioplasty Z98.890 S/P panniculectomy Z98.890 S/P laparoscopic sleeve gastrectomy Z98.84 Overweight E66.3
[2023-04-25 09:46] VITALS: BMI 29.8
== END 2023-04-25 10:06 | disposition home or self-care (01) ==
LOC: HO.HBS 10:04
PROVIDERS: PCP Family Medicine; Visit Provider Physician Assistant Surgical
DX: E66.3 Overweight (principal); Z68.29 Body mass index [BMI] 29.0-29.9, adult; Z90.3 Acquired absence of stomach [part of]; Z98.84 Bariatric surgery status
CPT/HCPCS: 99442

== ENCOUNTER → 2023-04-25 10:04 | Outpatient (BNVA) | payer OTHER, SELFPAY | PROVIDERS: PCP Family Medicine; Visit Provider Physician Assistant Surgical | DX: Z98.84 Bariatric surgery status (principal); E66.3 Overweight ==